=== PATIENT | male | born 1945 ===

== ENCOUNTER 2016-09-25 06:57 | Day surgery (SDC) | payer OTHER ==
[2016-09-17 21:19] VITALS: BMI 35.2
[2016-09-25] MEDS ORDERED: Midazolam 2 MG/2 ML VIAL ONE (09:46)
[2016-09-25] MEDS ORDERED: Iodixanol 320 MG/ML 200 ML BOTTLE IV ONE (09:47)
--- NOTE | 2016-09-25 10:27 | CP.SDSHP ---
Same Day Surgery H & P - History Proposed Procedure: please see [facility] consult. no change - Allergies Allergies: Allergies Penicillins Allergy (Intermediate, Verified 08/25/16 17:41) RASH Short Stay Discharge - Short Stay Discharge Admitting Diagnosis/Reason for Visit: CHEST PAIN Disposition: HOME/ ROUTINE
[2016-09-25] MEDS ORDERED: Sodium Chloride 0.9% 1,000 ML IV SCH (10:30)
--- NOTE | 2016-09-25 11:01 | OP ---
PROCEDURE DATE: 09/25/2016 PERIPHERAL ANGIOGRAM PROCEDURE PERFORMED: Retrograde access left common femoral artery, selective catheter placement in the right common femoral artery via contralateral approach , abdominal aortography with bilateral iliofemoral angiography, selective angiography right lower extremity using digital subtraction. INDICATIONS: Nonhealing ulcer. COMPLICATIONS: None. HISTORY: The patient is a 70-year-old male with past medical history of hypertension, hypercholesterolemia, and diabetes mellitus who presents with a diabetic foot ulcer. Due to poor wound healing, arterial duplex revealed moderate peripheral vascular disease. The patient is referred for angiography. The patient has a known transplanted right kidney. The risks of contrast- induced nephropathy were extensively discussed with the patient and his family. They understand, but given the poor wound healing, wish to proceed. DESCRIPTION OF PROCEDURE: After obtaining informed consent, the patient was prepped and draped in the usual sterile fashion. Left groin was accessed with a 5-Frisian sheath. Modified hook catheter was advanced to infrarenal abdominal aorta. Abdominal aortography was performed with visualization of bilateral iliac arteries. The catheter was then advanced over guidewire and selectively placed in the right common femoral artery. Selective angiography was performed. FINDINGS: The infrarenal abdominal aorta is free of aneurysm or dissection. Bilateral common iliac arteries arise normally. There is mild atherosclerotic plaque of the proximal right common iliac artery. The external iliac arteries arise normally. The anastomosis of the transplanted kidney to the right external iliac artery is free of disease. The internal iliac arteries have no significant disease. The external iliac arteries and common femoral arteries are free of significant disease. The proximal left superficial femoral artery is free of atherosclerosis. The right superficial femoral artery and popliteal artery are patent. There is mild atherosclerosis of the mid right popliteal artery. There is 2-vessel runoff to the right foot, which is supplied by the right anterior tibial artery and the right peroneal branch. There is an occlusion of the proximal right posterior tibial artery. There is no significant reconstitution of the posterior tibial artery. CONCLUSION: No significant inflow atherosclerosis with 2-vessel runoff to the right foot. PLAN: The patient will need continued antiplatelet therapy. There is no reconstitution site of the posterior tibial artery, and therefore, an endovascular approach or lower extremity bypass is not possible. Josi Griffith MD cc: [id number] TT: 09/25/2016 11:00:40 jn MTDD
== END 2016-09-25 12:33 | disposition home or self-care (01) ==
LOC: C.CATHLAB 06:57
PROVIDERS: ATTEND Internal Medicine Cardiovascular Disease
DX: E11.621 Type 2 diabetes mellitus with foot ulcer (principal); L97.519 Non-pressure chronic ulcer of other part of right foot with unspecified severity; I70.235 Atherosclerosis of native arteries of right leg with ulceration of other part of foot; I10 Essential (primary) hypertension; E78.00 Pure hypercholesterolemia, unspecified
CPT/HCPCS: 36140; 75716; 82948; J1644; J2250; J3010; J7040; Q9966

== ENCOUNTER 2017-04-06 06:17 | Day surgery (SDC) | payer MEDICARE, BC ==
[2017-03-31 11:50] VITALS: BMI 32.9
[2017-04-06 07:35] LABS: POTASSIUM 3.9 mmol/L (3.6-5.2)
[2017-04-06 07:44] LABS: INR 1.1
[2017-04-06] MEDS ORDERED: HYDROmorphone 0.5 mg/0.5 ml ISec IVP PRN (09:05)
[2017-04-06] MEDS ORDERED: Ciprofloxacin 400mg/200ml D5W 400 MG/200 ML BAG IVPB ONE (09:08)
[2017-04-06] MEDS ORDERED: Iohexol 240 (50 ml) ONE (09:09)
[2017-04-06] MEDS ORDERED: Sodium Chloride 0.9% 500 ML IV ONE (09:10)
[2017-04-06] MEDS ORDERED: Propofol 10 mg/ml Inj (20 ML) ONE (09:20)
[2017-04-06] MEDS ORDERED: Sodium Chloride 0.9% 1,000 ML IV ONE (09:40)
--- NOTE | 2017-04-06 09:46 | PCM.SURG1 ---
Surgeon's Initial Post Op Note - Surgeon's Notes Surgeon: jesús sheth Computer Forensic Examiner: none Type of Anesthesia: General Mask Pre-Operative Diagnosis: Hx of bladder tumor Operative Findings: bph. no bladder tumor. trabeculated bladder w cellules. filling defect L renal pelvis Post-Operative Diagnosis: same, see findings Operation Performed: cysto. bilat rtg pyelogram Specimen/Specimens Removed: urine Estimated Blood Loss: EBL {In ML}: 0 Blood Products Given: N/A Drains Used: No Drains Date of Surgery/Procedure: 04/06/17 Time of Surgery/Procedure: 09:35
--- NOTE | 2017-04-06 10:22 | RAD ---
PROCEDURE: Intraoperative Fluoroscopy. HISTORY: HX OF BLADDER TUMOR FINDINGS: Fluoroscopic assistance was provided. 10.3 seconds fluoroscopy time utilized during this procedure. Radiation dose gino 0.93891 mGy -cm
[2017-04-06 11:10] VITALS: RESP 16; O2SAT 97
[2017-04-06 11:29] VITALS: BP 120/70; PULSE 77; TEMP 97.3
--- NOTE | 2017-04-06 15:16 | RAD ---
HISTORY: HX OF BLADDER TUMOR COMPARISON: Comparison made with prior study 07/21/2016 FINDINGS: BOWEL: Moderate amount stool seen throughout the colon consistent with fecal retention/ constipation. No evidence of acute mechanical bowel obstruction. BONES: Osseous structures appear intact. Mild multilevel degenerative spondylosis of the lumbar spine. OTHER FINDINGS: Vascular calcifications are present IMPRESSION: Findings consistent with constipation.
--- NOTE | 2017-04-06 19:43 | OP ---
PROCEDURE DATE: 04/06/2017 PREOPERATIVE DIAGNOSIS: History of bladder tumor. POSTOPERATIVE DIAGNOSES: History of bladder tumor. No recurrent bladder tumor. Benign prostatic hypertrophy. Filling defect of left renal pelvis. PROCEDURE: Cystoscopy. Bilateral retrograde pyelogram. Procedure was performed under video endoscopic control as well as under fluoroscopic control. DESCRIPTION OF PROCEDURE: The patient received perioperative antibiotics. The patient was placed in lithotomy position. Genitalia prepped and draped sterilely. Anesthesia was provided by an anesthesiologist. A 22-Portuguese cystoscope sheath was introduced under direct vision. Urethra, prostate and bladder were inspected 30 degree and 70 degree lenses. FINDINGS: There was no stricture in the anterior urethra. There were no mucosal lesions within the urethra. The prostatic urethra was occlusive. The prostatic urethra was proximally 3 cm in length. There were no mucosal lesions within the prostatic urethra. There was no bladder neck contractions. The bladder was noted to markedly trabeculated. There were multiple small cellules. There was no bladder tumor. There was no bladder stone. The ureteral orifices were normal position and shape. There was no bladder diverticulum. Occlusive tip retrograde ureteropyelogram was performed. Iodinated contrast was instilled via cone tip catheter into each ureteral orifice. The retrograde pyelogram demonstrated normal calibers of ureters bilaterally. There was no filling defect within the ureter. The right renal collecting system was well filled and was normal. The left renal collecting system demonstrated a filling defect, oval-shaped, approximately 1 cm in size, located in the superior aspect of the renal pelvis. There was no caliectasis noted. Post drainage film was obtained as well and demonstrated good drainage from both kidneys. The bladder was reinspected with 70 degree lens and confirmed the above findings. The bladder was then drained. Cystoscope sheath removed. Rectal examination was performed. There was no abnormal pelvic mass fixation, induration. Prostate was supple and smooth approximately 25 g in size, without fixation, induration or nodularity. The patient tolerated the procedure without complication. Atiya Saldaña MD
== END 2017-04-06 11:35 | disposition home or self-care (01) ==
LOC: C.SDS 06:17
PROVIDERS: ATTEND Urology
DX: C67.9 Malignant neoplasm of bladder, unspecified (principal)
CPT/HCPCS: 36415; 52351; 74000; 80048; 82948; 85610; 85730; 87086; 88104; C1758; J7040

== ENCOUNTER 2017-08-31 06:14 | Day surgery (SDC) | payer MEDICARE, BC ==
[2017-08-19 08:11] VITALS: BMI 35.7
[2017-08-31] MEDS ORDERED: Lidocaine 2% Jelly (Uro-Jet) ONE (07:21)
[2017-08-31] MEDS ORDERED: Iohexol 240 (50 ml) ONE (07:21)
[2017-08-31 07:31] LABS: INR 1.2; PROTHROMBIN TIME 13.1 SECONDS (9.7-12.2)
[2017-08-31] MEDS ORDERED: Propofol 10 mg/ml Inj (20 ML) ONE (07:43)
[2017-08-31] MEDS ORDERED: Midazolam 2 MG/2 ML VIAL ONE (07:43)
[2017-08-31] MEDS: Ciprofloxacin 400mg/200ml D5W 400 MG/200 ML BAG IVPB ONE ×2 (07:50→08:06)
--- NOTE | 2017-08-31 08:14 | PCM.SURG1 ---
Surgeon's Initial Post Op Note - Surgeon's Notes Surgeon: Barbara Saldaña Mobile Home Installer: None Type of Anesthesia: General LMA Pre-Operative Diagnosis: Hx of bladder tumor Operative Findings: same. Abnormal bladder mucosa. filling defect of L kidney. bph Post-Operative Diagnosis: same Operation Performed: Cysto, bilat rtg pyelogram,. bladder bx and fulg, EUA Specimen/Specimens Removed: urine. bladder bx Estimated Blood Loss: EBL {In ML}: 0 Blood Products Given: N/A Drains Used: No Drains Post-Op Condition: Good Date of Surgery/Procedure: 08/31/17 Time of Surgery/Procedure: 08:14
[2017-08-31 09:59] VITALS: O2SAT 95
[2017-08-31 10:35] VITALS: BP 119/57; PULSE 81; RESP 19; TEMP 97.6
--- NOTE | 2017-08-31 15:27 | RAD ---
PROCEDURE: Intraoperative Fluoroscopy. HISTORY: HX. OF BLADDER TUMOR FINDINGS: Fluoroscopic assistance was provided for bilateral retrograde.. Please refer to the operative report from Dr. SHERMAN, [place]. Total fluoroscopic time (continuous mode) utilized during the procedure: seconds. 10.9 seconds.
--- NOTE | 2017-08-31 15:44 | RAD ---
HISTORY: HX. OF BLADDER TUMOR COMPARISON: 04/06/2017 FINDINGS: BOWEL: Normal. No obstruction. No free air. BONES: Normal. OTHER FINDINGS: None. IMPRESSION: No significant or acute findings to account for/ related to the clinical presentation.
--- NOTE | 2017-09-02 15:55 | OP ---
PROCEDURE DATE: 08/31/2017 PROCEDURES: 1. Cystoscopy. 2. Bilateral retrograde pyelogram, under fluoroscopic control. 3. Bladder biopsy and fulguration. 4. Exam under anesthesia. PREOPERATIVE DIAGNOSES: 1. History of bladder tumor. 2. Filling defect of left renal collecting system. 3. Urolithiasis. POSTOPERATIVE DIAGNOSES: 1. History of bladder tumor. 2. Filling defect of left renal collecting system. 3. Urolithiasis. 4. Abnormal bladder mucosa. OPERATING SURGEON: Atiya Saldaña MD DESCRIPTION OF PROCEDURE: The patient was placed in lithotomy position. Genitalia prepped and draped sterilely. Perioperative antibiotics were administered. Anesthesia was applied by the anesthesiologist via laryngeal mask airway. A 22-Tristanian cystoscope sheath was introduced under direct vision. Urethra, prostate, and bladder were inspected with 30-degree and 70-degree lenses. There was no stricture in the anterior urethra. The prostatic urethra was occlusive. Prostatic urethra was 3 cm in length. There were no mucosal lesions within the prostatic urethra. There was no bladder neck contraction. The bladder was noted to be mildly trabeculated. There were multiple cellules. The ureteral orifices were normal in position and shape. There was no bladder tumor. There was no bladder stone. There was abnormal bladder mucosa. On the trigone, bladder biopsy and fulguration were performed using cold cup biopsy forceps. Fulguration was performed with Ball electrode and electrocautery. The ureteral orifices were normal in position and shape. Occlusive tip retrograde ureteral pyelogram was performed. Iodinated contrast dye was instilled via cone tip catheter. The ureters and kidneys were viewed sequentially with fluoroscopy. The retrograde pyelogram demonstrated a filling defect within the left renal collecting system. The was approximately 5 mm in size and oval-shaped and smooth edged. There was no hydronephrosis. There was no evidence of ureteral obstruction or filling defect. The right retrograde pyelogram demonstrated no evidence of filling defect or obstruction within the ureteral collecting system. Post drainage film demonstrated good drainage from both systems. The bladder was reinspected with 70-degree lens and confirmed the above findings. Hemostasis was complete. The bladder was then drained. Cystoscope and sheath were removed. Rectal examination was performed. Prostate was supple and smooth, approximately 30 gm in size, without fixation, induration, or nodularity. The patient was returned to the supine position. The patient tolerated the procedure without complication. Atiya Saldaña MD
== END 2017-08-31 10:35 | disposition home or self-care (01) ==
LOC: C.SDS 06:14
PROVIDERS: ATTEND Urology
DX: N20.9 Urinary calculus, unspecified (principal); Z85.51 Personal history of malignant neoplasm of bladder
CPT/HCPCS: 36415; 52204; 52214; 74018; 82948; 85610; 85730; 87086; 88104; 88305; C1758; J0744

== ENCOUNTER 2017-10-12 06:16 | Day surgery (SDC) | payer MEDICARE, BC ==
[2017-10-05 09:15] VITALS: BMI 35.1
[2017-10-12] MEDS ORDERED: cefTRIAXone IV 1 gm in Dextros 0 ML IVPB ONE (07:22)
[2017-10-12] MEDS ORDERED: Iohexol 240 (50 ml) ONE (07:23)
[2017-10-12] MEDS ORDERED: Lidocaine 2% Jelly (Uro-Jet) ONE (07:23)
[2017-10-12] MEDS ORDERED: Dextrose 5%/0.45% NS 500 ML IV ONE (07:27)
[2017-10-12] MEDS ORDERED: Midazolam 2 MG/2 ML VIAL ONE (07:56)
[2017-10-12] MEDS ORDERED: Propofol 10 mg/ml Inj (20 ML) ONE (07:56)
[2017-10-12] MEDS ORDERED: Ciprofloxacin 400mg/200ml D5W 400 MG/200 ML BAG IVPB ONE (08:07)
[2017-10-12] MEDS ORDERED: Lactated Ringer's 1,000 ML IV ONE (09:23)
--- NOTE | 2017-10-12 09:23 | PCM.SURG1 ---
Surgeon's Initial Post Op Note - Surgeon's Notes Surgeon: Barbara Saldaña Pattern Fitter: none Type of Anesthesia: General LMA Pre-Operative Diagnosis: L renal pelvic filling defect Operative Findings: same Post-Operative Diagnosis: same Operation Performed: cysto,. L rtg pyelogram. L ureterorenoscopy. stent insertion Specimen/Specimens Removed: urine Estimated Blood Loss: EBL {In ML}: 0 Blood Products Given: N/A Post-Op Condition: Good Date of Surgery/Procedure: 10/12/17 Time of Surgery/Procedure: 09:00
[2017-10-12] MEDS ORDERED: HYDROmorphone 0.5 mg/0.5 ml ISec IVP PRN (09:37)
--- NOTE | 2017-10-12 10:46 | RAD ---
HISTORY: LT. KIDNEY FILLING DEFECT COMPARISON: 08/31/2017. FINDINGS: There are no calcifications overlying the renal silhouette. BOWEL: Normal. No obstruction. No free air. BONES: Normal. OTHER FINDINGS: Atherosclerotic vascular calcifications are present. IMPRESSION: No radiographic evidence for nephrourolithiasis.
[2017-10-12 10:53] VITALS: O2SAT 95
--- NOTE | 2017-10-12 11:33 | RAD ---
PROCEDURE: Intraoperative Fluoroscopy. HISTORY: Left KIDNEY FILLING DEFECT FINDINGS: Fluoroscopic assistance was provided for left renal nephrogram with nephroureteral placement.. Please refer to the operative report from Dr. SHERMAN, [place].
[2017-10-12 12:29] VITALS: BP 117/52; PULSE 82; RESP 15; TEMP 97.5
--- NOTE | 2017-10-13 15:12 | OP ---
PROCEDURE DATE: 10/12/2017 PREOPERATIVE DIAGNOSIS: History of left renal pelvic filling defect. POSTOPERATIVE DIAGNOSIS: History of left renal pelvic filling defect. PROCEDURE: Cystoscopy, left retrograde pyelogram, left ureterorenoscopy, left ureteral stent insertion. SURGEON: Atiya Saldaña MD DESCRIPTION OF PROCEDURE: The patient received perioperative antibiotics. The patient was placed in lithotomy position. Anesthesia was administered by the anesthesiologist. Procedure was performed under video endoscopic control as well as under fluoroscopic control. The patient was in lithotomy position and genitalia prepped and draped sterilely. A 22-Beninese cystoscope sheath was introduced under direct vision. Urethra, prostate, and bladder were inspected with 30-degree lens. FINDINGS: There was no stricture in the anterior urethra. There was evidence of lateral prostatic hypertrophy. There were no mucosal lesions within the prostate. There were no mucosal lesions within the bladder. There was moderate bladder trabeculation. The ureteral orifices were normal in position and shape. A 0.035 inch guidewire was inserted into the left ureteral orifice. A second guidewire was inserted into the left ureteral orifice. The guidewires were inserted up to level of the kidney. Ureteral dilation was performed using a 10-Beninese double-lumen ureteral catheter passed over the guidewires. The catheter advanced in atraumatic fashion under fluoroscopic control. Thereafter, a 7-Beninese flexible ureterorenoscope was advanced over the working wire under fluoroscopic as well as video endoscopic control. The ureteroscope advanced in atraumatic fashion without difficulty up to level of the kidney. Iodinated contrast dye was instilled via the open-ended catheter before we passed through ureteroscope. The kidney was inspected. The calyces were inspected. There was somewhat decreased visibility due to the scope. The calyces were inspected. The renal pelvis was inspected. However, due to the decreased visibility, the lesion could not be identified endoscopically. On some of the fluoroscopic views, although not all the fluoroscopic views, a filling defect was identified at the level of the mid to upper pole renal pelvis. There were no lesions within the ureter identified. The ureteroscope was removed. A 6-Beninese Multi-Length stent was inserted over the guidewire. Proper stent position was confirmed with fluoroscopy and endoscopy. The stent was left in place. The bladder was drained. Cystoscope sheath was removed. Lidocaine jelly was instilled previously. Exam under anesthesia was performed. Prostate was supple and smooth. There was no abnormal pelvic mass fixation or induration. There was no bladder tumor identified. The patient tolerated the procedure without complications. Atiya Saldaña MD
== END 2017-10-12 11:22 | disposition home or self-care (01) ==
LOC: C.SDS 06:16
PROVIDERS: ATTEND Urology
DX: R94.4 Abnormal results of kidney function studies (principal); E11.22 Type 2 diabetes mellitus with diabetic chronic kidney disease; I12.9 Hypertensive chronic kidney disease with stage 1 through stage 4 chronic kidney disease, or unspecified chronic kidney disease; N18.9 Chronic kidney disease, unspecified; Z94.0 Kidney transplant status; I49.5 Sick sinus syndrome; Z95.0 Presence of cardiac pacemaker; Z85.51 Personal history of malignant neoplasm of bladder; Z79.899 Other long term (current) drug therapy; Z79.4 Long term (current) use of insulin; Z79.52 Long term (current) use of systemic steroids; Z88.0 Allergy status to penicillin
CPT/HCPCS: 52332; 52351; 74018; 82948; 87086; J0744; J7042; J7120

== ENCOUNTER 2017-10-19 06:32 | Day surgery (SDC) | payer MEDICARE, BC ==
[2017-10-05 09:15] VITALS: BMI 35.1
[2017-10-19 07:59] LABS: INR 1.1; PROTHROMBIN TIME 13.1 SECONDS (9.7-12.2)
[2017-10-19] MEDS ORDERED: Midazolam 2 MG/2 ML VIAL ONE (08:12)
[2017-10-19] MEDS ORDERED: Propofol 10 mg/ml Inj (20 ML) ONE (08:12)
[2017-10-19] MEDS ORDERED: Lidocaine 2% Jelly (Uro-Jet) ONE (08:31)
[2017-10-19] MEDS ORDERED: Iohexol 240 (50 ml) ONE (08:31)
[2017-10-19] MEDS ORDERED: Ciprofloxacin 400mg/200ml D5W 400 MG/200 ML BAG IVPB ONE (08:31)
[2017-10-19] MEDS ORDERED: Succinylcholine Chloride 20 mg/ml Syr (5 ml) IV ONE (08:33)
[2017-10-19] MEDS ORDERED: Phenylephrine 10 mg/ml Inj ONE (08:51)
[2017-10-19] MEDS ORDERED: Lactated Ringer's 1,000 ML IV ONE (10:00)
--- NOTE | 2017-10-19 10:03 | PCM.SURG1 ---
Surgeon's Initial Post Op Note - Surgeon's Notes Surgeon: Barbara Saldaña Batch Freezer Operator: none Type of Anesthesia: General Endo Pre-Operative Diagnosis: L renal pelvic filling defect Operative Findings: same. Erythema of mucosa, raised. No definite tumor identified Post-Operative Diagnosis: same Operation Performed: cystoscopy. L uretero-renoscopy. L rtg pyelogram. Renal collecting system biopsy and fulguration. insertion of L ureteral stent. EUA Specimen/Specimens Removed: urine. renal pelvic bx Estimated Blood Loss: EBL {In ML}: 0 Blood Products Given: N/A Post-Op Condition: Good Date of Surgery/Procedure: 10/19/17 Time of Surgery/Procedure: 09:50
[2017-10-19] MEDS ORDERED: HYDROmorphone 0.5 mg/0.5 ml ISec IVP PRN (10:04)
--- NOTE | 2017-10-19 11:35 | RAD ---
HISTORY: GROSS HEMATURIA COMPARISON: 10/12/2017 single-view abdomen. FINDINGS: BOWEL: Normal. No obstruction. No free air. BONES: Normal. OTHER FINDINGS: Position of the left double J stent catheter(s): Satisfactory a new finding compared to the prior study IMPRESSION: Satisfactory position of recently placed double-J stent catheter on the left.
--- NOTE | 2017-10-19 11:37 | RAD ---
PROCEDURE: Intraoperative Fluoroscopy. HISTORY: GROSS HEMATURIA FINDINGS: Fluoroscopic assistance was provided for double-J stent catheter placement. Please refer to the operative report from Dr. SHERMAN, [place]. Total fluoroscopic time (continuous mode) utilized during the procedure 93.5 (seconds). Total exam DLP: (mGy)/m2 1.76
[2017-10-19 12:05] VITALS: O2SAT 98
[2017-10-19 12:52] VITALS: BP 124/55; PULSE 88; RESP 16; TEMP 97.5
--- NOTE | 2017-10-20 15:56 | OP ---
PROCEDURE DATE: 10/19/2017 PREOPERATIVE DIAGNOSIS: History of left renal pelvic filling defect. POSTOPERATIVE DIAGNOSES: 1. History of left renal pelvic filling defect. 2. Abnormal mucosa within the left renal collecting system. PROCEDURES: 1. Cystoscopy. 2. Left ureterorenoscopy. 3. Left renal pelvic biopsy and fulguration. 4. Left ureteral stent insertion. 5. Left retrograde pyelogram. OPERATING SURGEON: Atiya Saldaña MD Procedure was performed under video endoscopic control as well as under fluoroscopic control. DESCRIPTION OF PROCEDURE: The patient received perioperative antibiotics. The patient was placed in lithotomy position. General anesthesia was administered. The genitalia were prepped and draped sterilely. [employer] Assistant film of the abdomen was obtained and demonstrated the left ureteral stent in proper position. The 22-Icelandic cystoscope sheath was introduced under direct vision. The urethra, prostate, and bladder were inspected. There were no tumors within the urethra, prostate, or bladder. There was moderate diffuse cystitis. The left ureteral stent was seen in proper position. The prostatic urethra was mildly occlusive. A 0.035-inch guidewire was inserted into the left ureteral orifice and passed up to the level of the kidney. The left ureteral stent was grasped with grasping forceps and delivered to the distal end of the cystoscope sheath. A second guidewire was inserted into the left ureteral stent and passed up to the level of the kidney. Ureteroscopy was performed with the 7-Icelandic flexible ureteroscope. Ureteroscope passed without difficulty over the working wire, the ureteroscope was passed under fluoroscopic control as well as under video endoscopic control. There were no mucosal lesions within the ureter. There was no ureteral stone. There was no ureteral stricture. Iodinated contrast dye was instilled via the ureteroscope. The retrograde pyelogram demonstrated mild fullness of the collecting system. The previously identified renal pelvic filling defect was not sharply defined. Ureterorenoscopy was performed. All the calyces were inspected, starting with the upper pole calyces. The middle pole and lower pole calyces were inspected as well. There were no papillary tumors identified. The area of the incompletely visualized filling defect of the renal pelvis at the junction of the middle and upper pole calyces was identified under fluoroscopic control as well as videoendoscopic control. There was some erythematous mucosa with mucosa and some mucosa. This area was biopsied with the 3-Icelandic ureteroscopic biopsy forceps. Two biopsies were obtained and delivered along with the ureteroscope. The ureteroscope was reintroduced. Fulguration was performed with the electrocautery and 3-Icelandic ball electrode. Hemostasis was complete. Renal pelvic collecting system was reinspected. There were no other abnormal findings. The ureteroscope was removed. The ureteroscope was back loaded. A 6-Icelandic multi-length stent was inserted over the remaining guidewire. Proper stent position was confirmed with fluoroscopy and endoscopy. The guidewire was removed. Stent was left in place. A distal suture was left to exit per urethra from the stent. The bladder was drained. Cystoscope and sheath removed. Rectal examination under anesthesia was performed. There was no abnormal pelvic mass fixation or induration. The patient tolerated the procedure without complication. Atiya Saldaña MD
== END 2017-10-19 12:48 | disposition home or self-care (01) ==
LOC: C.SDS 06:32
PROVIDERS: ATTEND Urology
DX: R93.41 Abnormal radiologic findings on diagnostic imaging of renal pelvis, ureter, or bladder (principal); R31.0 Gross hematuria; E11.9 Type 2 diabetes mellitus without complications; Z79.4 Long term (current) use of insulin; I25.10 Atherosclerotic heart disease of native coronary artery without angina pectoris
CPT/HCPCS: 36415; 52005; 52007; 74018; 82948; 85610; 85730; 87086; 88104; 88305; C1769; C1887; C2617; J0744; J7120

== ENCOUNTER 2018-03-29 08:52 | Day surgery (SDC) | payer MEDICARE, BC ==
[2018-02-19 07:00] VITALS: BMI 35.1
[~2018-03-29 08:52] MED LIST: Iohexol 240 (50 ml) ONE; Lidocaine 2% Jelly (Uro-Jet) ONE
[2018-03-29] MEDS ORDERED: Ciprofloxacin 400mg/200ml D5W 400 MG/200 ML BAG IVPB ONE (10:47)
[2018-03-29] MEDS ORDERED: Midazolam 2 MG/2 ML VIAL ONE (10:55)
[2018-03-29] MEDS ORDERED: Propofol 10 mg/ml Inj (20 ML) ONE (10:55)
--- NOTE | 2018-03-29 11:25 | PCM.SURG1 ---
Surgeon's Initial Post Op Note - Surgeon's Notes Surgeon: Barbara Saldaña Awning Erector: none Type of Anesthesia: IV Sedation Pre-Operative Diagnosis: baldder tumor Operative Findings: abnormal [place] L floor Post-Operative Diagnosis: same, bph Operation Performed: cysto, bilat rtg pyelogram. bladder bx and fulg Specimen/Specimens Removed: urine. bladder bx Estimated Blood Loss: EBL {In ML}: 0 Blood Products Given: N/A Drains Used: No Drains Post-Op Condition: Good Date of Surgery/Procedure: 03/29/18 Time of Surgery/Procedure: 11:25
[2018-03-29] MEDS ORDERED: HYDROmorphone 0.5 mg/0.5 ml ISec IVP PRN (11:47)
[2018-03-29] MEDS ORDERED: Sodium Chloride 0.9% 1,000 ML IV SCH (12:00)
[2018-03-29 13:00] VITALS: RESP 18; TEMP 97.6
[2018-03-29 13:29] VITALS: BP 114/55; PULSE 62; O2SAT 99
--- NOTE | 2018-03-29 15:16 | RAD ---
Date of service: 03/29/2018 PROCEDURE: Intraoperative Fluoroscopy. HISTORY: HX. OF BLADDER TUMOR FINDINGS: Fluoroscopic assistance was provided. Fluoroscopy time = 25.4 sec. Radiation dose = 0.37932 mGy-cm. Please refer to the operative report from Dr. SHERMAN, [place].
--- NOTE | 2018-03-29 18:02 | RAD ---
Date of service: 03/29/2018 HISTORY: HX. OF BLADDER TUMOR COMPARISON: 10/19/2017 FINDINGS: BOWEL: Normal. No obstruction. No free air. BONES: Normal. OTHER FINDINGS: Removal of support apparatus since the prior study: Left-sided double-J stent. IMPRESSION: No significant or acute findings to account for/ related to the clinical presentation.
--- NOTE | 2018-03-30 15:12 | OP ---
PROCEDURE DATE: 03/29/2018 PREOPERATIVE DIAGNOSIS: History of bladder tumor. POSTOPERATIVE DIAGNOSIS: Abnormal bladder mucosa, bladder nodule. PROCEDURES: Cystoscopy. Bilateral retrograde pyelogram. Bladder biopsy and fulguration. Exam under anesthesia. OPERATING SURGEON: Atiya Saldaña MD PROCEDURE FOLLOWS: The patient received perioperative antibiotics. The patient was placed in lithotomy position. Anesthesia was provided by the anesthesiologist. The genitalia prepped and draped sterilely. Corporate Officer film of the abdomen was obtained. A 22-Slovak cystoscope sheath was introduced under direct vision. Urethra, prostate, and bladder were inspected with 30 degree and 70 degree lenses. FINDINGS: There was no stricture in the anterior urethra. There was evidence of trilobar prostatic hypertrophy which was occlusive. Prostatic urethra was 3.5 cm in length. There was predominantly lateral lobe hypertrophy. There was moderate bladder trabeculation. There was no bladder stone. There was one area of abnormal mucosa involving the left floor of the bladder. The mucosa was pale and elevated with nodular appearance. It did not have the typical papillary bladder tumor appearance. There was no bladder diverticulum. Occlusive tip retrograde ureteropyelogram was performed. Iodinated contrast dye was instilled via cone-tip catheter into each ureteral orifice. The ureter and kidneys were viewed sequentially with fluoroscopy. There was noted to be no evidence of obstruction or filling defect within the ureters or collecting system. There was noted to be a possible filling defect within the left collecting system. However, oblique views demonstrate that this filling defect was in fact not a filling defect, although rather was allusion of the filling defect, due to the anatomy of the upper and middle pole collecting system. This was further defined as normal on the oblique views. The fluoroscopic view of the oblique views was performed during lifetime movement of the patient under fluoroscopic control. There was no evidence of obstruction. There was excellent drainage on post drainage views. The area of abnormal mucosa was biopsied using cold cup biopsy forceps. Fulguration was performed with Ball electrode and electrocautery. Specimen sent for pathologic examination. The bladder was reinspected with 70 degree lens and confirmed the above findings. The bladder was then drained. Cystoscope sheath removed. Exam under anesthesia/rectal examination was performed. There was no abnormal pelvic mass fixation or induration. There was no bladder mass. Prostate was supple and smooth, approximately 30 to 40 g in size, without fixation, induration, or nodularity. The bladder was inspected extensively looking for an extra ureteral orifice, consistent with the patient's history of renal transplant. There was no other orifice identified. The retrograde pyelogram views only the marshall kidneys. The right kidney was noted to be smaller in size compared to the left kidney. The patient tolerated the procedure without complication. Atiya Saldaña MD
== END 2018-03-29 13:35 | disposition home or self-care (01) ==
LOC: C.SDS 08:52
PROVIDERS: ATTEND Urology
DX: N30.80 Other cystitis without hematuria (principal); N40.0 Benign prostatic hyperplasia without lower urinary tract symptoms
CPT/HCPCS: 52204; 74018; 82948; 87086; 88104; 88305; J0744; Q9966

== ENCOUNTER 2018-09-04 09:51 | Inpatient (IN) | payer MEDICARE, BC ==
[2018-09-04 09:53] VITALS: BMI 33.3
--- NOTE | 2018-09-04 11:07 | C.PDOC ---
History Of Present Illness CC: Hematuria, fever. Patient from [place] present with hematureia and low grade fever today. No abdominal pain, no disuria, no vomiting. Has DM, HTN Time Seen by Provider: 09/04/18 10:40 Chief Complaint (Nursing): Male Genitourinary History Per: Patient History/Exam Limitations: no limitations Current Symptoms Are (Timing): Still Present Severity: Moderate Pain Scale Rating Of: 0 Associated Symptoms: Chills, Urinary Symptoms Alleviating Factors: None Recent travel outside of the [place]: No Additional History Per: Family Past Medical History Vital Signs: Last Vital Signs Temp 100.8 F H 09/04/18 10:17 Pulse 75 09/04/18 10:17 Resp 18 09/04/18 10:17 BP 108/67 09/04/18 10:17 Pulse Ox 99 09/04/18 10:17 JULIANN Report Viewed: Yes - Medical History PMH: Arthritis, Atrial Fibrillation, Benign Prostatic Hyperplasia, Cardia Arrhythmia (ATRIAL FIB), CHF, Diabetes (insulin), Fractures (Left hand finger 60yrs ago), HTN, Hypercholesterolemia, Hypothyroidism, Pneumonia, Chronic Kidney Disease (S/P renal transplant), Sleep Apnea Denies: CAD Surgical History: Endoscopy, Pacemaker - [facility] CONTRAST ARTERIOGRAM-LEG (02/02/13) EXCISION OF R FOOT SUBCU/FASCIA, OPEN APPROACH (08/19/16) EXCISION OF RIGHT FOOT SKIN, EXTERNAL APPROACH (08/19/16) EXCISION OF RIGHT METATARSAL, OPEN APPROACH (08/19/16) EXERCISE TRMT MUSCULOSK LOW BACK/LE W ASSIST EQUIP (08/25/16) FLUOROSCOPY OF SUPERIOR VENA CAVA, GUIDANCE (08/11/18) GAIT TRAINING/AMBULAT TREATMENT USING ASSIST EQUIPMENT (08/25/16) HEMODIALYSIS (02/02/13) HOME MANAGEMENT TREATMENT USING ASSIST EQUIPMENT (08/25/16) INSERT PACE, SINGL RICA IN CHEST SUBCU/FASCIA, OPEN (11/04/15) INSERTION OF ENDOTRACHEAL AIRWAY INTO TRACHEA, VIA OPENING (11/04/15) INSERTION OF INFUSION DEV INTO SUP VENA CAVA, PERC APPROACH (08/11/18) INSERTION OF PACEMAKER LEAD INTO R VENTRICLE, PERC APPROACH (11/04/15) PERFORMANCE OF CARDIAC PACING, CONTINUOUS (11/04/15) PLAIN RADIOGRAPHY OF AORTA, BI LE ART USING OTH CONTRAST (09/18/16) RESECTION OF RIGHT METATARSAL, OPEN APPROACH (08/19/16) RESPIRATORY VENTILATION, GREATER THAN 96 CONSECUTIVE HOURS (11/04/15) ULTRASONOGRAPHY OF SUPERIOR VENA CAVA, GUIDANCE (08/11/18) Family History: States: Unknown Family Hx - Social History Hx Alcohol Use: Yes Hx Substance Use: No - Immunization History Hx Tetanus Toxoid Vaccination: No Hx Influenza Vaccination: No Hx Pneumococcal Vaccination: No Review Of Systems Constitutional: Positive for: Chills Eyes: Negative for: Pain ENT: Negative for: Ear Pain Cardiovascular: Negative for: Chest Pain Respiratory: Negative for: Cough Gastrointestinal: Negative for: Nausea Genitourinary: Positive for: Hematuria. Negative for: Incontinence Musculoskeletal: Negative for: Neck Pain Neurological: Negative for: Weakness, Numbness Psych: Negative for: Anxiety, Depression, Suicidal ideation Physical Exam - Physical Exam Appears: Well, Non-toxic Skin: Normal Color Head: Atraumatic, Normacephalic Eye(s): bilateral: Normal Inspection Ear(s): Left: Normal, Right: Normal, Bilateral: Normal Nose: Normal Oral Mucosa: Moist Tongue: Normal Appearing Lips: Normal Appearing Throat: Normal Neck: Normal, Normal ROM Lymphatic: Deferred Chest: Symmetrical Cardiovascular: Rhythm Regular, No Edema Respiratory: Normal Breath Sounds Gastrointestinal/Abdominal: Normal Exam, Soft, No Tenderness Back: Normal Inspection Extremity: Normal ROM, No Pedal Edema Pulses: Left Carotid: Normal, Right Carotid: Normal Neurological/Psych: Oriented x3, Normal Speech, Normal Cognition Extremity: Right: No Drift, Left: No Drift, Upper: No Drift, Lower: No Drift ED Course And Treatment - Laboratory Results Result Diagrams: 09/04/18 11:03 09/04/18 11:03 O2 Sat by Pulse Oximetry: 99 (RA) Pulse Ox Interpretation: Normal Medical Decision Making Medical Decision Making: Plans: -- chem labs -- blood work -- CXR -- IV fluids Discuss case with Dr. Zenia Saldaña, Urology called and requested additional testing: CTA and told to consult with Dr. Erazo and Pt PMD Dr. Arciniega, however, Dr. Arciniega does not have privileges at [facility]. Dr. Arciniega was unable to be contacted. Disposition Discussed With : Cesar Knutson Doctor Will See Patient In The: Hospital Counseled Patient/Family Regarding: Studies Performed, Diagnosis - Disposition Disposition: HOSPITALIZED Disposition Time: 12:30 Condition: STABLE Forms: [facility] (Chinese) - POA Present On Arrival: None - Clinical Impression Clinical Impression: UTI (urinary tract infection), bacterial, Hematuria
[2018-09-04 11:26] LABS: BASO # 0.1 K/uL (0.0-0.2); BASO % 0.4 % (0.0-2.0); EOS % 0.2 % (0.0-4.0); HEMOGLOBIN 10.9 g/dL (12.0-18.0); LYMPH # 0.7 K/uL (1.0-4.3); LYMPH % 5.6 % (20.0-40.0); MEAN CELL VOLUME 87.5 fL (80.0-94.0); MEAN CORPUSCULAR HEMOGLOBIN 27.5 pg (27.0-31.0); MEAN CORPUSCULAR HGB CONC 31.4 g/dL (33.0-37.0); MEAN PLATELET VOLUME 9.6 fL (7.2-11.7); MONO # 1.8 K/uL (0.0-0.8); MONO % 15.4 % (0.0-10.0); NEUT # 9.3 K/uL (1.8-7.0); NEUT % 78.4 % (50.0-75.0); PLATELET COUNT 166 K/uL (130-400); RBC 3.96 Mil/uL (4.40-5.90); RED CELL DISTRIBUTION WIDTH 17.9 % (11.5-14.5); WHITE BLOOD COUNT 11.9 K/uL (4.8-10.8)
[2018-09-04 11:35] LABS: URINE BACTERIA MOD (<OCC); URINE BILIRUBIN NEGATIVE (NEGATIVE); URINE BLOOD 3+ (NEGATIVE); URINE CLARITY Hazy (Clear); URINE COLOR Amber (YELLOW); URINE GLUCOSE (UA) NORMAL (Normal); URINE LEUKOCYTE ESTERASE 2+ Leu/uL (Negative); URINE PROTEIN 2+ mg/dL (NEGATIVE); URINE UROBILINOGEN NORMAL mg/dL (0.2-1.0)
[2018-09-04 11:38] LABS: ALB/GLOB RATIO 1.6 (1.0-2.1); ALBUMIN 3.9 g/dL (3.5-5.0); CALCIUM 9.3 mg/dl (8.6-10.4)
[2018-09-04] MEDS ORDERED: Moxifloxacin IV 400mg/250ml NS 400 MG/250 ML BAG IVPB ONE ×2 (12:14→12:39)
[2018-09-04] MEDS: Sodium Chloride 0.9% 1,000 ML IV SCH ×3 (12:39→21:00)
[2018-09-04] MEDS ORDERED: Sodium Chloride 0.9% 1,000 ML ONE (12:39)
[2018-09-04 12:41] LABS: BANDS 3 % (0-2); LYMPHOCYTE 2 % (20-40); MONOCYTE 14 % (0-10); NEUTROPHIL 81 % (50-75); PLATELET ESTIMATE NORMAL (NORMAL); TOTAL CELLS COUNTED 100
[2018-09-04 12:42] LABS: ANISOCYTOSIS MODERATE; HYPOCHROMIC SLIGHT; OVALOCYTES SLIGHT; POIKILOCYTOSIS SLIGHT; POLYCHROMIC SLIGHT
[2018-09-04 12:48] LABS: GIANT PLATELETS PRESENT; LARGE PLATELETS PRESENT
[2018-09-04 12:58] LABS: TOXIC GRANULATION PRESENT
--- NOTE | 2018-09-04 13:15 | RAD ---
Chest x-ray single frontal view HISTORY: Shortness of breath. Comparison: 03/16/2018 Findings: Right-sided pacemaker. Diffuse increased interstitial lung markings. Bilateral hilar prominence. Patchy consolidative changes at the left lung base and right infrahilar region. Cardiomegaly. Degenerative changes in the spine and shoulders. Impression: Right-sided pacemaker. Diffuse increased interstitial lung markings. Bilateral hilar prominence. Patchy consolidative changes at the left lung base and right infrahilar region. Cardiomegaly.
--- NOTE | 2018-09-04 14:47 | CT ---
CT abdomen and pelvis HISTORY: Flank pain. COMPARISON: CT dated 06/23/2017 Technique: Multiple contiguous axial images were performed through the abdomen and pelvis without the use of intravenous contrast. Subsequently, sagittal and coronal reformatted images were obtained. This CT exam was performed using one or more of the following dose reduction techniques: Automated exposure control, adjustment of the mA and/or kV according to patient size, and/or use of iterative reconstruction technique. Findings: Scattered areas of atelectasis seen throughout the lung bases. Scattered areas of nodular consolidation and or nodules seen throughout the visualized portions of the left lung including within the lingula there is focal nodular consolidation measuring up to 8 millimeters as well as smaller scattered nodular densities seen throughout the left lower lobe. A 1 centimeter focal area of nodular consolidation is seen at the anterior aspect of the left lower lobe. Prominent calcified granuloma at the left lung base. Coronary stents. Punctate hypodensity at the dome of the liver. Prominent liver with fatty infiltration. Gallbladder is preserved. Prominent spleen. Splenule. Splenic calcifications. Adrenal glands are preserved. Pancreas is preserved. Small hiatal hernia. Few distended loops of small bowel seen within the left upper abdomen. Atrophic right kidney with perinephric fat stranding. Renal vascular calcifications. Atrophic left kidney with renal vascular calcifications. Mild left perinephric fat stranding. Right renal transplant kidney with moderate perinephric fat stranding. Mild fullness of the right renal collecting system and ureter. No discrete calculus identified. Distended urinary bladder. Heterogeneous prostate and seminal vesicles. Moderate fecal retention in the colon. Appendix is within normal limits. Atherosclerotic calcification and plaque within the aorta. Few shotty para-aortic and inguinal lymph nodes. Few shotty mesenteric lymph nodes. Degenerative changes in the spine. Posterior disc osteophyte complex at the L3-4 level. Bone island in the left iliac bone. Impression: Moderate perinephric fat stranding at the level of the right renal transplant kidney with associated mild fullness of the right renal collecting system and ureter. This is nonspecific. Acute infectious and or inflammatory changes of the right renal transplant kidney cannot be excluded. Clinical correlation. Additional findings as above.
[2018-09-04] MEDS ORDERED: Glucagon Recombinant 1 mg Inj IM PRN (16:54)
[2018-09-04] MEDS ORDERED: Dextrose 50% SYRINGE Inj (50 ml) IV PRN (16:54)
[2018-09-04] MEDS: Potassium Chloride 20 mEq ER Tab PO SCH (17:00)
[2018-09-04] MEDS: Aztreonam 1 GM in Sodium Chloride 0.9% 100 ML IVPB SCH (21:55)
[2018-09-04] MEDS: (Lantus) Insulin Glargine, Recombinant SC SCH (22:01)
[2018-09-04] MEDS: (Novolog) Insulin Aspart, Recombinant 100 u/ml 10 ml vial SC SCH (22:03)
[2018-09-04] MEDS: Mycophenolic Acid DR 360 mg Tab PO SCH (22:11)
[2018-09-05] MEDS: Levothyroxine 75 MCG TAB PO SCH (05:37)
[2018-09-05] MEDS: Aztreonam 1 GM in Sodium Chloride 0.9% 100 ML IVPB SCH ×3 (05:37→21:40)
[2018-09-05] MEDS: (Novolog) Insulin Aspart, Recombinant 100 u/ml 10 ml vial SC SCH ×4 (08:00→21:42)
[2018-09-05] MEDS: Sodium Chloride 0.9% 1,000 ML IV SCH ×4 (08:01→19:30)
[2018-09-05 08:56] LABS: BASO # 0.1 K/uL (0.0-0.2); BASO % 0.5 % (0.0-2.0); EOS % 0.3 % (0.0-4.0); HEMOGLOBIN 9.8 g/dL (12.0-18.0); LYMPH # 0.9 K/uL (1.0-4.3); LYMPH % 7.2 % (20.0-40.0); MEAN CELL VOLUME 86.9 fL (80.0-94.0); MEAN CORPUSCULAR HEMOGLOBIN 27.3 pg (27.0-31.0); MEAN CORPUSCULAR HGB CONC 31.4 g/dL (33.0-37.0); MEAN PLATELET VOLUME 10.1 fL (7.2-11.7); MONO # 2.1 K/uL (0.0-0.8); MONO % 16.2 % (0.0-10.0); NEUT # 9.6 K/uL (1.8-7.0); NEUT % 75.8 % (50.0-75.0); PLATELET COUNT 144 K/uL (130-400); RBC 3.59 Mil/uL (4.40-5.90); RED CELL DISTRIBUTION WIDTH 18.3 % (11.5-14.5); WHITE BLOOD COUNT 12.7 K/uL (4.8-10.8)
[2018-09-05 09:06] LABS: CALCIUM 8.5 mg/dl (8.6-10.4)
[2018-09-05] MEDS ORDERED: Ergocalciferol 50,000 Intl Units Cap PO SCH (10:00)
[2018-09-05] MEDS ORDERED: Levothyroxine 75 MCG TAB PO SCH (10:00)
[2018-09-05] MEDS: Potassium Chloride 20 mEq ER Tab PO SCH (10:14)
[2018-09-05] MEDS: Mycophenolic Acid DR 360 mg Tab PO SCH (10:14)
[2018-09-05] MEDS: Pantoprazole 40 mg EC Tab PO SCH (10:14)
[2018-09-05] MEDS: Multiple Vitamins Tab PO SCH (10:14)
[2018-09-05 10:52] LABS: BANDS 7 % (0-2); LYMPHOCYTE 4 % (20-40); MONOCYTE 13 % (0-10); NEUTROPHIL 76 % (50-75); PLATELET ESTIMATE NORMAL (NORMAL); TOTAL CELLS COUNTED 100
[2018-09-05 10:53] LABS: ANISOCYTOSIS MODERATE; LARGE PLATELETS PRESENT
[2018-09-05 10:56] LABS: GIANT PLATELETS PRESENT; HYPOCHROMIC SLIGHT; POLYCHROMIC SLIGHT; TOXIC GRANULATION PRESENT
[2018-09-05 10:57] LABS: OVALOCYTES SLIGHT; POIKILOCYTOSIS SLIGHT
--- NOTE | 2018-09-05 16:27 | CP.PCM.CON ---
History of Present Illness - History of Present Illness History of Present Illness: 72 yo male with hx of renal transplant and gram neg sepsis with PCN allergy 72 year old female with a history of bladder cancer, DM, HTN, artial fibrillation, right transmetarsal amputation, left AV fistula and right renal transplant presents to the ED for evaluation of fever, Patient is a resident at [facility] and has an indwelling llanes catheter in place. He was recently treated at [facility] for urosepsis /pyelonephritis right kidney His blood cultures are again positive - Medical History PMH: Arthritis, Atrial Fibrillation, Cardia Arrhythmia (ATRIAL FIB), CHF, Diabetes (insulin), Fractures (Left hand finger 60yrs ago), HTN, Hypercho lesterolemia, Hypothyroidism, Pneumonia, Chronic Kidney Disease (S/P renal transplant), Sleep Apnea Denies: CAD Review of Systems - Review of Systems All systems: reviewed and no additional remarkable complaints except - Constitutional Constitutional: Chills, Fever, Malaise - EENT Eyes: absent: As Per HPI, Blind Spots, Blurred Vision, Change in Vision, Decreased Night Vision, Diplopia, Discharge, Dry Eye, Exophthalmos, Floaters, Irritation, Itchy Eyes, Loss of Peripheral Vision, Pain, Photophobia, Requires Corrective Lenses, Sees Flashes, Spots in Vision, Tunnel Vision, Other Visual Disturbances, Loss of Vision, Other Ears: absent: As Per HPI, Decreased Hearing, Ear Discharge, Ear Pain, Tinnitus, Abnormal Hearing, Disequilibrium, Dizziness, Other Nose/Mouth/Throat: absent: As Per HPI, Epistaxis, Nasal Congestion, Nasal Discharge, Nasal Obstruction, Nasal Trauma, Nose Pain, Post Nasal Drip, Sinus Pain, Sinus Pressure, Bleeding Gums, Change in Voice, Dental Pain, Dry Mouth, Dysphagia, Halitosis, Hoarsness, Lip Swelling, Mouth Lesions, Mouth Pain, Odynophagia, Sore Throat, Throat Swelling, Tongue Swelling, Facial Pain, Neck Pain, Neck Mass, Other - Cardiovascular Cardiovascular: As Per HPI - Respiratory Respiratory: As Per HPI - Gastrointestinal Gastrointestinal: absent: As Per HPI, Abdominal Pain, Belching, Bloating, Change in Bowel Habits, Change in Stool Character, Coffee Ground Emesis, Constipation, Cramping, Diarrhea, Dyspepsia, Dysphagia, Early Satiety, Excessive Flatus, Fecal Incontinence, Heartburn, Hematemesis, Hematochezia, Loose Stools, Melena, Nausea, Odynophagia, Temesmus, Vomiting, Other - Genitourinary Genitourinary: absent: As Per HPI, Change in Urinary Stream, Difficulty Urinating, Dysuria, Flank Pain, Hematuria, Pyuria, Nocturia, Urinary Incontinence, Urinary Frequency, Urinary Hesitance, Urinary Urgency, Voiding Freq/Small Amts, Freq UTI, Hx Renal/Bladder Calculi, Hx /Renal Surgery, Bladder Distension, Other - Musculoskeletal Musculoskeletal: As Per HPI - Integumentary Integumentary: absent: As Per HPI, Acne, Alopecia, Bleeding Lesions, Change in Hair, Change in Nails, Change in Pigmentation, Changing Lesions, Dry Skin, Erythema, Furuncle, Hirsutism, Lesions, New Lesions, Non-Healing Lesions, Photosensitivity, Pruritus, Rash, Skin Pain, Skin Ulcer, Sores, Striae, Swelling, Unusual Bruising, Wounds, Jaundice, Other - Neurological Neurological: absent: As Per HPI, Abnormal Gait, Abnormal Hearing, Abnormal Movements, Abnormal Speech, Behavioral Changes, Burning Sensations, Confusion, Convulsions, Disequilibrium, Dizziness, Numbness, Focal Weakness, Frequent Falls, Headaches, Lack of Coordination, Loss of Vision, Memory Loss, Paresthesias, Radicular Pain, Restless Legs, Sensory Deficit, Syncope, Tingling, Tremor, Vertigo, Weakness, Other Visual Disturbances, Other - Psychiatric Psychiatric: absent: As Per HPI, Abnormal Sleep Pattern, Anhedonia, Anxiety, Auditory Hallucinations, Behavioral Changes, Change in Appetite, Change in Libido, Confusion, Depression, Difficulty Concentrating, Hallucinations, Homicidal Ideation, Hopelessness, Irritability, Memory Loss, Mood Swings, Panic Attacks, Paranoia, Suicidal Ideation, Visual Hallucinations, Tactile Hallucinations, Other - Endocrine Endocrine: As Per HPI - Hematologic/Lymphatic Hematologic: absent: As Per HPI, Easy Bleeding, Easy Bruising, Lymphadenopathy, Other Past Patient History - Infectious Disease Hx of Infectious Diseases: None - Past Medical History & Family History Past Medical History?: Yes - Past Social History Smoking Status: Former Smoker - CARDIAC Hx Atrial Fibrillation: Yes Hx Cardia Arrhythmia: Yes (ATRIAL FIB) Hx Congestive Heart Failure: Yes Hx Hypercholesterolemia: Yes Hx Hypertension: Yes Hx Pacemaker: Yes - PULMONARY Hx Pneumonia: Yes Hx Sleep Apnea: Yes - HEENT Hx HEENT Problems: Yes Hx Cataracts: Yes - RENAL Hx Chronic Kidney Disease: Yes (S/P renal transplant) - ENDOCRINE/METABOLIC Hx Hypothyroidism: Yes - INTEGUMENTARY Hx Dermatological Problems: No - MUSCULOSKELETAL/RHEUMATOLOGICAL Hx Arthritis: Yes Hx Fractures: Yes (Left hand finger 60yrs ago) - PSYCHIATRIC Hx Substance Use: No - ANESTHESIA Hx Anesthesia: Yes Hx Anesthesia Reactions: No Hx Malignant Hyperthermia: No Meds Allergies/Adverse Reactions: Allergies Allergy/AdvReac Type Severity Reaction Status Date / Time Penicillins Allergy Intermediate RASH Verified 08/11/18 18:15 - Medications Medications: Current Medications Acetaminophen (Tylenol 325mg Tab) 650 mg PO Q4 PRN PRN Reason: Pain, Mild (1-3) Last Admin: 09/05/18 12:37 Dose: 650 mg Aspirin (Ecotrin) 81 mg PO DAILY [facility] Last Admin: 09/05/18 10:14 Dose: 81 mg Dextrose (Dextrose 50% Inj) 0 ml IV STAT PRN; Protocol PRN Reason: Hypoglycemia Protocol Dextrose (Glutose 15) 0 gm PO ONCE PRN; Protocol PRN Reason: Hypoglycemia Protocol Ergocalciferol (Drisdol 50,000 Intl Units Cap) 1 cap PO Q7D [facility] Last Admin: 09/05/18 12:24 Dose: 1 cap Ferrous Sulfate (Feosol) 325 mg PO DAILY [facility] Last Admin: 09/05/18 10:14 Dose: 325 mg Gabapentin (Neurontin) 100 mg PO DAILY [facility] Last Admin: 09/05/18 10:14 Dose: 100 mg Glucagon (Glucagen Diagnostic Kit) 0 mg IM STAT PRN; Protocol PRN Reason: Hypoglycemia Protocol Hydrocortisone Sodium Succinate (Solu-Cortef) 100 mg IV Q8H [facility] Sodium Chloride (Sodium Chloride 0.9%) 1,000 mls @ 100 mls/hr IV .Q10H [facility] Last Admin: 09/05/18 08:01 Dose: Not Given Sodium Chloride (Sodium Chloride 0.9%) 1,000 mls @ 100 mls/hr IV .Q10H [facility] Last Admin: 09/04/18 14:36 Dose: 100 mls/hr Dextrose (Dextrose 5% In Water 1000 Ml) 1,000 mls @ 0 mls/hr IV .Q0M PRN; Protocol PRN Reason: Hypoglycemia Protocol Aztreonam 1 gm/ Sodium (Chloride) 100 mls @ 100 mls/hr IVPB Q8H [facility]; Protocol Last Admin: 09/05/18 12:31 Dose: 100 mls/hr Sodium Chloride (Sodium Chloride 0.9%) 1,000 mls @ 50 mls/hr IV .Q20H [facility] Last Admin: 09/05/18 13:00 Dose: 50 mls/hr Influenza Virus Vaccine (Flucelvax Quad 1741-6150 Syr) 60 mcg IM .ONCE ONE Stop: 09/08/18 10:01 Insulin Aspart (Novolog) 0 unit SC [facility]; Protocol Last Admin: 09/05/18 12:23 Dose: 2 units Insulin Glargine (Lantus) 30 unit SC [facility] Last Admin: 09/04/18 22:01 Dose: 30 units Levothyroxine Sodium (Synthroid) 75 mcg PO DAILY@0630 [facility] Last Admin: 09/05/18 05:37 Dose: 75 mcg Multivitamins (Hexavitamin) 1 tab PO DAILY [facility] Last Admin: 09/05/18 10:14 Dose: 1 tab Mycophenolate Sodium (Myfortic Dr) 720 mg PO Q12 [facility] Last Admin: 09/05/18 10:14 Dose: 720 mg Pantoprazole Sodium (Protonix Ec Tab) 40 mg PO DAILY [facility] Last Admin: 09/05/18 10:14 Dose: 40 mg Rosuvastatin Calcium (Crestor) 10 mg PO [facility] Last Admin: 09/04/18 21:57 Dose: 10 mg Tamsulosin HCl (Flomax) 0.4 mg PO BID [facility] Last Admin: 09/05/18 10:14 Dose: 0.4 mg Physical Exam - Constitutional Appears: Non-toxic, No Acute Distress - Head Exam Head Exam: ATRAUMATIC, NORMAL INSPECTION, NORMOCEPHALIC - Eye Exam Eye Exam: PERRL. absent: Scleral icterus Pupil Exam: NORMAL ACCOMODATION - ENT Exam ENT Exam: Mucous Membranes Dry, Normal External Ear Exam, Normal Oropharynx - Cardiovascular Exam Cardiovascular Exam: REGULAR RHYTHM, +S1, +S2 - GI/Abdominal Exam GI & Abdominal Exam: Diminished Bowel Sounds, Soft. absent: Tenderness - Rectal Exam Rectal Exam: Deferred - Exam Exam: NORMAL INSPECTION - Extremities Exam Extremities exam: Positive for: pedal pulses present. Negative for: calf tenderness, pedal edema, tenderness Additional comments: right TMA - Back Exam Back exam: absent: CVA tenderness (L), CVA tenderness (R), paraspinal tenderness - Neurological Exam Neurological exam: Alert, CN II-XII Intact, Oriented x3, Reflexes Normal - Psychiatric Exam Psychiatric exam: Depressed - Skin Skin Exam: Dry Results - Vital Signs Recent Vital Signs: Last Vital Signs Temp 99.9 F H 09/05/18 12:37 Pulse 100 H 09/05/18 12:27 Resp 18 09/05/18 12:27 BP 120/77 09/05/18 12:27 Pulse Ox 94 L 09/05/18 12:27 - Labs Result Diagrams: 09/05/18 08:25 09/05/18 08:25 Labs: Laboratory Results - last 24 hr 09/04/18 09/05/18 09/05/18 21:30 07:09 08:25 WBC 12.7 H RBC 3.59 L Hgb 9.8 L Hct 31.2 L MCV 86.9 MCH 27.3 MCHC 31.4 L RDW 18.3 H Plt Count 144 MPV 10.1 Neut % (Auto) 75.8 H Lymph % (Auto) 7.2 L [place] % (Auto) 16.2 H Eos % (Auto) 0.3 Baso % (Auto) 0.5 Neut # (Auto) 9.6 H Lymph # (Auto) 0.9 L [place] # (Auto) 2.1 H Eos # (Auto) 0.0 Baso # (Auto) 0.1 Neutrophils % (Manual) 76 H Band Neutrophils % 7 H Lymphocytes % (Manual) 4 L Monocytes % (Manual) 13 H Toxic Granulation Present Platelet Estimate Normal Large Platelets Present Giant Platelets Present Polychromasia Slight Hypochromasia (manual) Slight Poikilocytosis (manual Slight Anisocytosis (manual) Moderate Ovalocytes Slight Sodium Potassium Chloride Carbon Dioxide Anion Gap BUN Creatinine Est GFR ( Amer) Est GFR (Non-Af Amer) POC Glucose (mg/dL) 173 H 102 Random Glucose Lactic Acid Calcium Prostate Specific Ag 09/05/18 09/05/18 09/05/18 08:25 12:16 15:17 WBC RBC Hgb Hct MCV MCH MCHC RDW Plt Count MPV Neut % (Auto) Lymph % (Auto) [place] % (Auto) Eos % (Auto) Baso % (Auto) Neut # (Auto) Lymph # (Auto) [place] # (Auto) Eos # (Auto) Baso # (Auto) Neutrophils % (Manual) Band Neutrophils % Lymphocytes % (Manual) Monocytes % (Manual) Toxic Granulation Platelet Estimate Large Platelets Giant Platelets Polychromasia Hypochromasia (manual) Poikilocytosis (manual Anisocytosis (manual) Ovalocytes Sodium 132 Potassium 3.7 Chloride 98 Carbon Dioxide 25 Anion Gap 12 BUN 42 H Creatinine 3.2 H Est GFR ( Amer) 23 Est GFR (Non-Af Amer) 19 POC Glucose (mg/dL) 175 H Random Glucose 95 D Lactic Acid 1.7 Calcium 8.5 L Prostate Specific Ag 0.290 Assessment & Plan (1) Hematuria Status: Acute (2) UTI (urinary tract infection), bacterial Status: Acute (3) Bacteremia Status: Acute (4) Bifascicular block Status: Acute (5) CKD (chronic kidney disease) Status: Acute - Assessment and Plan (Free Text) Assessment: recurrent pyelo from transplanted kidney with bacteremia-- r/o occult abscess consider MRI as well as evaluation for possible llanes removal 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
--- NOTE | 2018-09-05 18:11 | CP.PCM.CON ---
History of Present Illness - History of Present Illness History of Present Illness: Nephrology Consultation Note: Assessment: critical Acute Kidney Injury (N17.9) likely due to ATN with sepsis Diabetic chronic Kidney Disease (E11.22) Hypertensive Chronic Kidney Disease (I12.9) CKD 3 with cr 2.1 ESRD s/p DDRT 2013 acute pyelonephritis with sepsis with shock CHF, Ca bladder, BPH, obesity Plan No acute need for renal replacement therapy at this time. will need close follow up. may need inpatient transfer to his transplant center Hypertension control with meds as ordered. Maintain hemodynamics stable. Avoid hypotension. Patient not on ACEI/ARB due to recent JUNI and sepsis Monitor Input/Output, daily weights and renal function with basic metabolic panel check bladder sonogram r/o retention continue with IVF. hold BP meds and diuretics continue with iron, MVI. continue with flomax Re: kidney transplant: pt on montly belatacept infusion at [facility], last dose few days ago. will hold myfortic for few days in view of his current clinical condition until sepsis/shock better. prednisone 5 mg/d but will give stress dose steroids few days Dose meds/antibiotics for reduced GFR. Avoid fleets enema/magnesium based la xatives. Avoid nephrotoxins/NSAIDs/ iodinated contrast (unless needed emergently) Glycemic control Further work up/management as per primary team Thanks for allowing me to participate in care of your patient. Will follow patient with you. Please call if any Qs. had d/w team Dr Chema Cornejo Office: [phone] Chief Complaint; burning urination Reason for consult: Acute Kidney Injury, kidney Tx HPI: Pt is a 72 M with hx of diabetes Mellitus ( years), hypertension (years) CHF, Ca bladder, BPH, obesity, ESRD s/p DDRT 2013 admitted with UTI and sepsis. renal consult for Juni and Tx management Denies OTC/herbal meds or NSAIDs No recent iodinated contrast exposure. Noted obvious episodes of low BP (SBP 60- 80s). ROS: Cardiovascular: No chest pain. Pulmonary: No shortness of breath Gastrointestinal: denies abdominal pain No nausea. No vomiting. Genitourinary: c/o pain while urinating. Denies blood in urine. All other negative except as mentioned in HPI Physical Examination: General Appearance: Comfortable, in no acute respiratory distress, co-operative . Vitals reviewed and noted as below Head; Atraumatic, normocephalic ENT: no ulcers no thrush. Tongue is midline. Oropharynx: no rash or ulcers. EYES: Pupils are equal, round and reactive to light accommodation. Eye muscles and extraocular movement intact. Sclera is anicteric. Neck; supple no lymphadenopathy, no thyromegaly or bruit Lungs: Normal respiratory rate/effort. Breath sounds bilateral bit reduced at bases Heart: Normal rate. s1s2 normal. No rub or gallop. Extremities: trace edema. No varicose veins Neurological: Patient is alert, awake and oriented to person, place and time. No focal deficit. Strength bilateral appropriate and equal Skin: Warm and dry. Normal turgor. No rash. Palpitation: Normal elasticity for age Abdomen: Abdomen is soft. Bowel sounds +. There is no abdominal tenderness, no guarding/rigidity no organomegaly Psych: limited insight and normal affect/mood MSK: no joint tenderness or swelling. Digits and nails normal, no deformity : [place] kidney or bladder not palpable. RLQ allograft with mild tenderness Labs/imaging reviewed. Past medical history, past surgical history, family history, social history, allergy reviewed and noted as below Family hx: no hx of CKD. Rest non-contributory Past Patient History - Infectious Disease Hx of Infectious Diseases: None - Past Medical History & Family History Past Medical History?: Yes - Past Social History Smoking Status: Former Smoker - CARDIAC Hx Atrial Fibrillation: Yes Hx Cardia Arrhythmia: Yes (ATRIAL FIB) Hx Congestive Heart Failure: Yes Hx Hypercholesterolemia: Yes Hx Hypertension: Yes Hx Pacemaker: Yes - PULMONARY Hx Pneumonia: Yes Hx Sleep Apnea: Yes - HEENT Hx HEENT Problems: Yes Hx Cataracts: Yes - RENAL Hx Chronic Kidney Disease: Yes (S/P renal transplant) - ENDOCRINE/METABOLIC Hx Hypothyroidism: Yes - INTEGUMENTARY Hx Dermatological Problems: No - MUSCULOSKELETAL/RHEUMATOLOGICAL Hx Arthritis: Yes Hx Fractures: Yes (Left hand finger 60yrs ago) - PSYCHIATRIC Hx Substance Use: No - ANESTHESIA Hx Anesthesia: Yes Hx Anesthesia Reactions: No Hx Malignant Hyperthermia: No Meds Allergies/Adverse Reactions: Allergies Allergy/AdvReac Type Severity Reaction Status Date / Time Penicillins Allergy Intermediate RASH Verified 08/11/18 18:15 - Medications Medications: Current Medications Acetaminophen (Tylenol 325mg Tab) 650 mg PO Q4 PRN PRN Reason: Pain, Mild (1-3) Last Admin: 09/05/18 12:37 Dose: 650 mg Aspirin (Ecotrin) 81 mg PO DAILY [facility] Last Admin: 09/05/18 10:14 Dose: 81 mg Dextrose (Dextrose 50% Inj) 0 ml IV STAT PRN; Protocol PRN Reason: Hypoglycemia Protocol Dextrose (Glutose 15) 0 gm PO ONCE PRN; Protocol PRN Reason: Hypoglycemia Protocol Ergocalciferol (Drisdol 50,000 Intl Units Cap) 1 cap PO Q7D [facility] Last Admin: 09/05/18 12:24 Dose: 1 cap Ferrous Sulfate (Feosol) 325 mg PO DAILY [facility] Last Admin: 09/05/18 10:14 Dose: 325 mg Gabapentin (Neurontin) 100 mg PO DAILY [facility] Last Admin: 09/05/18 10:14 Dose: 100 mg Glucagon (Glucagen Diagnostic Kit) 0 mg IM STAT PRN; Protocol PRN Reason: Hypoglycemia Protocol Hydrocortisone Sodium Succinate (Solu-Cortef) 100 mg IV Q8H [facility] Last Admin: 09/05/18 16:30 Dose: 100 mg Sodium Chloride (Sodium Chloride 0.9%) 1,000 mls @ 100 mls/hr IV .Q10H [facility] Last Admin: 09/05/18 08:01 Dose: Not Given Sodium Chloride (Sodium Chloride 0.9%) 1,000 mls @ 100 mls/hr IV .Q10H [facility] Last Admin: 09/04/18 14:36 Dose: 100 mls/hr Dextrose (Dextrose 5% In Water 1000 Ml) 1,000 mls @ 0 mls/hr IV .Q0M PRN; Protocol PRN Reason: Hypoglycemia Protocol Aztreonam 1 gm/ Sodium (Chloride) 100 mls @ 100 mls/hr IVPB Q8H [facility]; Protocol Last Admin: 09/05/18 12:31 Dose: 100 mls/hr Sodium Chloride (Sodium Chloride 0.9%) 1,000 mls @ 50 mls/hr IV .Q20H [facility] Last Admin: 09/05/18 13:00 Dose: 50 mls/hr Influenza Virus Vaccine (Flucelvax Quad [id number] Syr) 60 mcg IM .ONCE ONE Stop: 09/08/18 10:01 Insulin Aspart (Novolog) 0 unit SC ACHS [facility]; Protocol Last Admin: 09/05/18 16:30 Dose: 2 units Insulin Glargine (Lantus) 30 unit SC [facility] Last Admin: 09/04/18 22:01 Dose: 30 units Levothyroxine Sodium (Synthroid) 75 mcg PO DAILY@0630 [facility] Last Admin: 09/05/18 05:37 Dose: 75 mcg Multivitamins (Hexavitamin) 1 tab PO DAILY [facility] Last Admin: 09/05/18 10:14 Dose: 1 tab Pantoprazole Sodium (Protonix Ec Tab) 40 mg PO DAILY [facility] Last Admin: 09/05/18 10:14 Dose: 40 mg Rosuvastatin Calcium (Crestor) 10 mg PO HS [facility] Last Admin: 09/04/18 21:57 Dose: 10 mg Tamsulosin HCl (Flomax) 0.4 mg PO BID [facility] Last Admin: 09/05/18 17:31 Dose: 0.4 mg Results - Vital Signs Recent Vital Signs: Last Vital Signs Temp 99.9 F H 09/05/18 12:37 Pulse 100 H 09/05/18 12:27 Resp 18 09/05/18 12:27 BP 120/77 09/05/18 12:27 Pulse Ox 94 L 09/05/18 12:27 - Labs Result Diagrams: 09/05/18 08:25 09/05/18 08:25 Labs: Laboratory Results - last 24 hr 09/04/18 09/05/18 09/05/18 21:30 07:09 08:25 WBC 12.7 H RBC 3.59 L Hgb 9.8 L Hct 31.2 L MCV 86.9 MCH 27.3 MCHC 31.4 L RDW 18.3 H Plt Count 144 MPV 10.1 Neut % (Auto) 75.8 H Lymph % (Auto) 7.2 L Cecil % (Auto) 16.2 H Eos % (Auto) 0.3 Baso % (Auto) 0.5 Neut # (Auto) 9.6 H Lymph # (Auto) 0.9 L Cecil # (Auto) 2.1 H Eos # (Auto) 0.0 Baso # (Auto) 0.1 Neutrophils % (Manual) 76 H Band Neutrophils % 7 H Lymphocytes % (Manual) 4 L Monocytes % (Manual) 13 H Toxic Granulation Present Platelet Estimate Normal Large Platelets Present Giant Platelets Present Polychromasia Slight Hypochromasia (manual) Slight Poikilocytosis (manual Slight Anisocytosis (manual) Moderate Ovalocytes Slight Sodium Potassium Chloride Carbon Dioxide Anion Gap BUN Creatinine Est GFR ( Amer) Est GFR (Non-Af Amer) POC Glucose (mg/dL) 173 H 102 Random Glucose Lactic Acid Calcium Prostate Specific Ag 09/05/18 09/05/18 09/05/18 08:25 12:16 15:17 WBC RBC Hgb Hct MCV MCH MCHC RDW Plt Count MPV Neut % (Auto) Lymph % (Auto) Cecil % (Auto) Eos % (Auto) Baso % (Auto) Neut # (Auto) Lymph # (Auto) Cecil # (Auto) Eos # (Auto) Baso # (Auto) Neutrophils % (Manual) Band Neutrophils % Lymphocytes % (Manual) Monocytes % (Manual) Toxic Granulation Platelet Estimate Large Platelets Giant Platelets Polychromasia Hypochromasia (manual) Poikilocytosis (manual Anisocytosis (manual) Ovalocytes Sodium 132 Potassium 3.7 Chloride 98 Carbon Dioxide 25 Anion Gap 12 BUN 42 H Creatinine 3.2 H Est GFR ( Amer) 23 Est GFR (Non-Af Amer) 19 POC Glucose (mg/dL) 175 H Random Glucose 95 D Lactic Acid 1.7 Calcium 8.5 L Prostate Specific Ag 0.290 09/05/18 16:48 WBC RBC Hgb Hct MCV MCH MCHC RDW Plt Count MPV Neut % (Auto) Lymph % (Auto) Cecil % (Auto) Eos % (Auto) Baso % (Auto) Neut # (Auto) Lymph # (Auto) Cecil # (Auto) Eos # (Auto) Baso # (Auto) Neutrophils % (Manual) Band Neutrophils % Lymphocytes % (Manual) Monocytes % (Manual) Toxic Granulation Platelet Estimate Large Platelets Giant Platelets Polychromasia Hypochromasia (manual) Poikilocytosis (manual Anisocytosis (manual) Ovalocytes Sodium Potassium Chloride Carbon Dioxide Anion Gap BUN Creatinine Est GFR ( Amer) Est GFR (Non-Af Amer) POC Glucose (mg/dL) 151 H Random Glucose Lactic Acid Calcium Prostate Specific Ag
[2018-09-05] MEDS: (Lantus) Insulin Glargine, Recombinant SC SCH (21:42)
[2018-09-06 01:10] VITALS: RESP 20
[2018-09-06] MEDS: Sodium Chloride 0.9% 1,000 ML IV SCH ×4 (03:34→11:50)
[2018-09-06] MEDS: Aztreonam 1 GM in Sodium Chloride 0.9% 100 ML IVPB SCH ×3 (05:21→21:32)
[2018-09-06] MEDS: Levothyroxine 75 MCG TAB PO SCH (05:36)
[2018-09-06 06:23] LABS: HEMOGLOBIN 9.9 g/dL (12.0-18.0); MEAN CELL VOLUME 87.3 fL (80.0-94.0); MEAN CORPUSCULAR HEMOGLOBIN 27.8 pg (27.0-31.0); MEAN CORPUSCULAR HGB CONC 31.8 g/dL (33.0-37.0); MEAN PLATELET VOLUME 9.7 fL (7.2-11.7); RBC 3.57 Mil/uL (4.40-5.90); RED CELL DISTRIBUTION WIDTH 18.4 % (11.5-14.5); WHITE BLOOD COUNT 6.6 K/uL (4.8-10.8)
[2018-09-06 06:39] LABS: INR 1.4; PROTHROMBIN TIME 15.4 SECONDS (9.7-12.2)
[2018-09-06 06:56] LABS: ALB/GLOB RATIO 1.4 (1.0-2.1); ALBUMIN 3.6 g/dL (3.5-5.0); CALCIUM 8.5 mg/dl (8.6-10.4)
--- NOTE | 2018-09-06 07:54 | CP.PCM.PN ---
Subjective - Date & Time of Evaluation Date of Evaluation: 09/06/18 Time of Evaluation: 09:00 - Subjective Subjective: Pt is a 72 M with PMHx of DMII, HTN, CHF, bladder CA, BPH, a fib, ESRD s/p DDRT 2013 admitted with UTI and sepsis. Patient recently treated for urosepsis with pyelonephritis at [facility]. Patient lives at [place] and has an i ndwelling llanes. Today patient says he is feeling much better. Patient denies any headache, chest pain, abdominal pain, nausea, vomiting, constipation, or diarrhea. All: Penicillins PMHx: DMII, HTN, CHF, bladder CA, BPH, obesity, ESRD s/p DDRT 2013 Surghx: Renal transplant, right metatarsal amputation, left AVF Objective - Vital Signs/Intake and Output Vital Signs (last 24 hours): Temp Pulse Resp BP Pulse Ox 97.2 F L 79 20 97/59 L 98 09/06/18 00:00 09/06/18 00:00 09/06/18 00:00 09/06/18 00:00 09/06/18 00:00 Intake and Output: 09/06/18 09/06/18 06:59 18:59 Intake Total 640 Output Total 340 Balance 300 - Medications Medications: Current Medications Acetaminophen (Tylenol 325mg Tab) 650 mg PO Q4 PRN PRN Reason: Pain, Mild (1-3) Last Admin: 09/06/18 00:04 Dose: 650 mg Aspirin (Ecotrin) 81 mg PO DAILY [facility] Last Admin: 09/05/18 10:14 Dose: 81 mg Dextrose (Dextrose 50% Inj) 0 ml IV STAT PRN; Protocol PRN Reason: Hypoglycemia Protocol Dextrose (Glutose 15) 0 gm PO ONCE PRN; Protocol PRN Reason: Hypoglycemia Protocol Ergocalciferol (Drisdol 50,000 Intl Units Cap) 1 cap PO Q7D [facility] Last Admin: 09/05/18 12:24 Dose: 1 cap Ferrous Sulfate (Feosol) 325 mg PO DAILY [facility] Last Admin: 09/05/18 10:14 Dose: 325 mg Gabapentin (Neurontin) 100 mg PO DAILY [facility] Last Admin: 09/05/18 10:14 Dose: 100 mg Glucagon (Glucagen Diagnostic Kit) 0 mg IM STAT PRN; Protocol PRN Reason: Hypoglycemia Protocol Hydrocortisone Sodium Succinate (Solu-Cortef) 100 mg IV Q8H [facility] Last Admin: 09/06/18 00:04 Dose: 100 mg Sodium Chloride (Sodium Chloride 0.9%) 1,000 mls @ 100 mls/hr IV .Q10H [facility] Last Admin: 09/06/18 03:34 Dose: Not Given Sodium Chloride (Sodium Chloride 0.9%) 1,000 mls @ 100 mls/hr IV .Q10H [facility] Last Admin: 09/05/18 19:30 Dose: Not Given Dextrose (Dextrose 5% In Water 1000 Ml) 1,000 mls @ 0 mls/hr IV .Q0M PRN; Protocol PRN Reason: Hypoglycemia Protocol Aztreonam 1 gm/ Sodium (Chloride) 100 mls @ 100 mls/hr IVPB Q8H [facility]; Protocol Last Admin: 09/06/18 05:21 Dose: 100 mls/hr Sodium Chloride (Sodium Chloride 0.9%) 1,000 mls @ 50 mls/hr IV .Q20H [facility] Last Admin: 09/06/18 03:34 Dose: 50 mls/hr Influenza Virus Vaccine (Flucelvax Quad 0049-0200 Syr) 60 mcg IM .ONCE ONE Stop: 09/08/18 10:01 Insulin Aspart (Novolog) 0 unit SC [facility]; Protocol Last Admin: 09/05/18 21:42 Dose: Not Given Insulin Glargine (Lantus) 30 unit SC [facility] Last Admin: 09/05/18 21:42 Dose: 30 units Levothyroxine Sodium (Synthroid) 75 mcg PO DAILY@0630 [facility] Last Admin: 09/06/18 05:36 Dose: 75 mcg Multivitamins (Hexavitamin) 1 tab PO DAILY [facility] Last Admin: 09/05/18 10:14 Dose: 1 tab Pantoprazole Sodium (Protonix Ec Tab) 40 mg PO DAILY [facility] Last Admin: 09/05/18 10:14 Dose: 40 mg Rosuvastatin Calcium (Crestor) 10 mg PO [facility] Last Admin: 09/05/18 21:40 Dose: 10 mg Tamsulosin HCl (Flomax) 0.4 mg PO BID [facility] Last Admin: 09/05/18 17:31 Dose: 0.4 mg - Labs Labs: 09/06/18 06:15 03/18/19 06:15 PT 15.4 SECONDS (9.7-12.2) H 09/06/18 06:15 INR 1.4 09/06/18 06:15 APTT 29 SECONDS (21-34) 09/06/18 06:15 - Constitutional Appears: Non-toxic, No Acute Distress - Head Exam Head Exam: ATRAUMATIC, NORMAL INSPECTION, NORMOCEPHALIC - Eye Exam Eye Exam: EOMI, Normal appearance - ENT Exam ENT Exam: Mucous Membranes Moist - Respiratory Exam Respiratory Exam: Clear to Ausculation Bilateral, NORMAL BREATHING PATTERN - Cardiovascular Exam Cardiovascular Exam: REGULAR RHYTHM, RRR, +S1, +S2 - GI/Abdominal Exam GI & Abdominal Exam: Soft, Normal Bowel Sounds - Extremities Exam Extremities Exam: Normal Inspection - Neurological Exam Neurological Exam: Alert, Awake, Oriented x3 - Psychiatric Exam Psychiatric exam: Normal Affect, Normal Mood - Skin Skin Exam: Intact, Normal Color, Warm Assessment and Plan - Assessment and Plan (Free Text) Assessment: Pyelonephritis with Bacteremia ID consulted, Dr. Bloom, help appreciated Nephro consulted, Dr. Cornejo, help appreciated Urology consulted, Dr. Saldaña, help appreciated Meds: Aztreonam 1 gm ivbp q8h NS at 75 cc/hr Hx Renal Transplant as per nephro: pt on monthly belatacept infusion at [facility], last dose few days ago. will hold myfortic for few days until sepsis/shock better. will give stress dose steroids few days Solu-Cortef 50mg iv q8h ESRD Feosol 325mg po daily Multivitamins Sodium Bicarb 650mg po BID Vit D 50,000 u q7d Hypothyroidism Synthroid 75mcg po daily f/u TSH, free T4 DMII Lantus 30 u sc HS ISS hypoglycemia protocol Gabapentin 100mg po daily ASA 81mg po daily accuchecks ACHS BPH Flomax .4mg po BID HLD Crestor 10mg po HS ASA 81mg po daily Prophylaxis Protonix 40mg po daily SCDs Discussed with Dr. Knutson
[2018-09-06] MEDS: (Novolog) Insulin Aspart, Recombinant 100 u/ml 10 ml vial SC SCH ×4 (08:10→21:31)
--- NOTE | 2018-09-06 08:23 | HP ---
HISTORY OF PRESENT ILLNESS: The patient presented to the hospital with chief complaint of weakness, fatigue, tiredness, chills, hematuria. The patient has history of transplant. PHYSICAL EXAMINATION: GENERAL: The patient is awake, alert, and oriented. VITAL SIGNS: Temperature 98, pulse 90. HEENT: Within normal limits. NECK: Supple. CHEST: Symmetrical. HEART: Regular. ABDOMEN: Soft. EXTREMITIES: No edema. IMPRESSION AND PLAN: History of urosepsis, status post transplant. Get bed rest. Antibiotics. Urology and Nephrology consult. Cesar Knutson MD
[2018-09-06] MEDS: Multiple Vitamins Tab PO SCH (10:31)
[2018-09-06] MEDS: Pantoprazole 40 mg EC Tab PO SCH (10:31)
--- NOTE | 2018-09-06 10:55 | CP.PCM.PN ---
Subjective - Date & Time of Evaluation Date of Evaluation: 09/06/18 Time of Evaluation: 10:52 - Subjective Subjective: Nephrology Consultation Note: Assessment: critical Acute Kidney Injury (N17.9) likely due to ATN with sepsis Diabetic chronic Kidney Disease (E11.22) Hypertensive Chronic Kidney Disease (I12.9) CKD 3 with cr 2.1 ESRD s/p DDRT 2013 acute pyelonephritis with sepsis with shock CHF, Ca bladder, BPH, obesity Plan No acute need for renal replacement therapy at this time. will need close follow up. may need inpatient transfer to his transplant center. Pt looks better today. will attempt to reach out to his transplant nephro @ [facility] Hypertension control with meds as ordered. Maintain hemodynamics stable. Avoid hypotension. Patient not on ACEI/ARB due to recent JUNI and sepsis Monitor Input/Output, daily weights and renal function with basic metabolic panel check bladder sonogram r/o retention continue with IVF. hold BP meds and diuretics continue with iron, MVI. continue with flomax added sodium bicarb Re: kidney transplant: pt on montly belatacept infusion at [facility], last dose few days ago. will hold myfortic for few days in view of his current clinical condition until sepsis/shock better. prednisone 5 mg/d but will give stress dose steroids few days, lwered to 50 mg q8hr Dose meds/antibiotics for reduced GFR. Avoid fleets enema/magnesium based laxatives. Avoid nephrotoxins/NSAIDs/ iodinated contrast (unless needed emergen tly) Glycemic control Further work up/management as per primary team Thanks for allowing me to participate in care of your patient. Will follow patient with you. Please call if any Qs. had d/w team Dr Chema Cornejo Office: [phone] Chief Complaint; burning urination Reason for consult: Acute Kidney Injury, kidney Tx HPI: Pt is a 72 M with hx of diabetes Mellitus ( years), hypertension (years) CHF, Ca bladder, BPH, obesity, ESRD s/p DDRT 2013 admitted with UTI and sepsis. renal consult for Juni and Tx management Denies OTC/herbal meds or NSAIDs No recent iodinated contrast exposure. Noted obvious episodes of low BP (SBP 60- 80s). ROS: Cardiovascular: No chest pain. Pulmonary: No shortness of breath Gastrointestinal: denies abdominal pain No nausea. No vomiting. Genitourinary: no pain while urinating. Denies blood in urine. All other negative except as mentioned in HPI Physical Examination: General Appearance: Comfortable, in no acute respiratory distress, co-operative . Vitals reviewed and noted as below Head; Atraumatic, normocephalic ENT: no ulcers no thrush. Tongue is midline. Oropharynx: no rash or ulcers. EYES: Pupils are equal, round and reactive to light accommodation. Eye muscles and extraocular movement intact. Sclera is anicteric. Neck; supple no lymphadenopathy, no thyromegaly or bruit Lungs: Normal respiratory rate/effort. Breath sounds bilateral clerarer Heart: Normal rate. s1s2 normal. No rub or gallop. Extremities: trace edema. No varicose veins Neurological: Patient is alert, awake and oriented to person, place and time. No focal deficit. Strength bilateral appropriate and equal Skin: Warm and dry. Normal turgor. No rash. Palpitation: Normal elasticity for age Abdomen: Abdomen is soft. Bowel sounds +. There is no abdominal tenderness, no guarding/rigidity no organomegaly Psych: limited insight and normal affect/mood MSK: no joint tenderness or swelling. Digits and nails normal, no deformity : [place] kidney or bladder not palpable. RLQ allograft with mild tenderness Labs/imaging reviewed. Past medical history, past surgical history, family history, social history, allergy reviewed and noted as below Family hx: no hx of CKD. Rest non-contributory Objective - Vital Signs/Intake and Output Vital Signs (last 24 hours): Temp Pulse Resp BP Pulse Ox 98.6 F 74 20 100/90 97 09/06/18 08:11 09/06/18 08:11 09/06/18 08:11 09/06/18 08:11 09/06/18 08:11 Intake and Output: 09/06/18 09/06/18 06:59 18:59 Intake Total 640 Output Total 340 Balance 300 - Medications Medications: Current Medications Acetaminophen (Tylenol 325mg Tab) 650 mg PO Q4 PRN PRN Reason: Pain, Mild (1-3) Last Admin: 09/06/18 00:04 Dose: 650 mg Aspirin (Ecotrin) 81 mg PO DAILY [facility] Last Admin: 09/06/18 10:30 Dose: 81 mg Dextrose (Dextrose 50% Inj) 0 ml IV STAT PRN; Protocol PRN Reason: Hypoglycemia Protocol Dextrose (Glutose 15) 0 gm PO ONCE PRN; Protocol PRN Reason: Hypoglycemia Protocol Ergocalciferol (Drisdol 50,000 Intl Units Cap) 1 cap PO Q7D [facility] Last Admin: 09/05/18 12:24 Dose: 1 cap Ferrous Sulfate (Feosol) 325 mg PO DAILY [facility] Last Admin: 09/06/18 10:30 Dose: 325 mg Gabapentin (Neurontin) 100 mg PO DAILY [facility] Last Admin: 09/06/18 10:31 Dose: 100 mg Glucagon (Glucagen Diagnostic Kit) 0 mg IM STAT PRN; Protocol PRN Reason: Hypoglycemia Protocol Hydrocortisone Sodium Succinate (Solu-Cortef) 50 mg IV Q8H [facility] Dextrose (Dextrose 5% In Water 1000 Ml) 1,000 mls @ 0 mls/hr IV .Q0M PRN; Protocol PRN Reason: Hypoglycemia Protocol Aztreonam 1 gm/ Sodium (Chloride) 100 mls @ 100 mls/hr IVPB Q8H [facility]; Protocol Last Admin: 09/06/18 05:21 Dose: 100 mls/hr Influenza Virus Vaccine (Flucelvax Quad [id number] Syr) 60 mcg IM .ONCE ONE Stop: 09/08/18 10:01 Insulin Aspart (Novolog) 0 unit SC [facility]; Protocol Last Admin: 09/06/18 08:10 Dose: 4 units Insulin Glargine (Lantus) 30 unit SC [facility] Last Admin: 09/05/18 21:42 Dose: 30 units Levothyroxine Sodium (Synthroid) 75 mcg PO DAILY@0630 [facility] Last Admin: 09/06/18 05:36 Dose: 75 mcg Multivitamins (Hexavitamin) 1 tab PO DAILY [facility] Last Admin: 09/06/18 10:31 Dose: 1 tab Pantoprazole Sodium (Protonix Ec Tab) 40 mg PO DAILY [facility] Last Admin: 09/06/18 10:31 Dose: 40 mg Rosuvastatin Calcium (Crestor) 10 mg PO HS [facility] Last Admin: 09/05/18 21:40 Dose: 10 mg Sodium Bicarbonate (Sodium Bicarbonate Tab) 650 mg PO BID [facility] Last Admin: 09/06/18 10:30 Dose: 650 mg Tamsulosin HCl (Flomax) 0.4 mg PO BID [facility] Last Admin: 09/06/18 10:31 Dose: 0.4 mg - Labs Labs: 09/06/18 06:15 09/06/18 06:15 PT 15.4 SECONDS (9.7-12.2) H 09/06/18 06:15 INR 1.4 09/06/18 06:15 APTT 29 SECONDS (21-34) 09/06/18 06:15
[2018-09-06] MEDS ORDERED: Sodium Chloride 0.9% 1,000 ML IV SCH (11:00)
--- NOTE | 2018-09-06 11:52 | CP.PCM.PN ---
Subjective - Date & Time of Evaluation Date of Evaluation: 09/06/18 Time of Evaluation: 09:00 - Subjective Subjective: seen on rounds orders written Objective - Vital Signs/Intake and Output Vital Signs (last 24 hours): Temp Pulse Resp BP Pulse Ox 98.6 F 74 20 100/90 97 09/06/18 08:11 09/06/18 08:11 09/06/18 08:11 09/06/18 08:11 09/06/18 08:11 Intake and Output: 09/06/18 09/06/18 06:59 18:59 Intake Total 640 Output Total 340 Balance 300 - Medications Medications: Current Medications Acetaminophen (Tylenol 325mg Tab) 650 mg PO Q4 PRN PRN Reason: Pain, Mild (1-3) Last Admin: 09/06/18 00:04 Dose: 650 mg Aspirin (Ecotrin) 81 mg PO DAILY [facility] Last Admin: 09/06/18 10:30 Dose: 81 mg Dextrose (Dextrose 50% Inj) 0 ml IV STAT PRN; Protocol PRN Reason: Hypoglycemia Protocol Dextrose (Glutose 15) 0 gm PO ONCE PRN; Protocol PRN Reason: Hypoglycemia Protocol Ergocalciferol (Drisdol 50,000 Intl Units Cap) 1 cap PO Q7D [facility] Last Admin: 09/05/18 12:24 Dose: 1 cap Ferrous Sulfate (Feosol) 325 mg PO DAILY [facility] Last Admin: 09/06/18 10:30 Dose: 325 mg Gabapentin (Neurontin) 100 mg PO DAILY [facility] Last Admin: 09/06/18 10:31 Dose: 100 mg Glucagon (Glucagen Diagnostic Kit) 0 mg IM STAT PRN; Protocol PRN Reason: Hypoglycemia Protocol Hydrocortisone Sodium Succinate (Solu-Cortef) 50 mg IV Q8H [facility] Dextrose (Dextrose 5% In Water 1000 Ml) 1,000 mls @ 0 mls/hr IV .Q0M PRN; Protocol PRN Reason: Hypoglycemia Protocol Aztreonam 1 gm/ Sodium (Chloride) 100 mls @ 100 mls/hr IVPB Q8H [facility]; Protocol Last Admin: 09/06/18 05:21 Dose: 100 mls/hr Sodium Chloride (Sodium Chloride 0.9%) 1,000 mls @ 75 mls/hr IV .[id number] [facility] Last Admin: 09/06/18 11:50 Dose: Not Given Influenza Virus Vaccine (Flucelvax Quad 4728-5338 Syr) 60 mcg IM .ONCE ONE Stop: 09/08/18 10:01 Insulin Aspart (Novolog) 0 unit SC [facility]; Protocol Last Admin: 09/06/18 11:39 Dose: 10 units Insulin Glargine (Lantus) 30 unit SC [facility] Last Admin: 09/05/18 21:42 Dose: 30 units Levothyroxine Sodium (Synthroid) 75 mcg PO DAILY@0630 [facility] Last Admin: 09/06/18 05:36 Dose: 75 mcg Multivitamins (Hexavitamin) 1 tab PO DAILY [facility] Last Admin: 09/06/18 10:31 Dose: 1 tab Pantoprazole Sodium (Protonix Ec Tab) 40 mg PO DAILY [facility] Last Admin: 09/06/18 10:31 Dose: 40 mg Rosuvastatin Calcium (Crestor) 10 mg PO [facility] Last Admin: 09/05/18 21:40 Dose: 10 mg Sodium Bicarbonate (Sodium Bicarbonate Tab) 650 mg PO BID [facility] Last Admin: 09/06/18 10:30 Dose: 650 mg Tamsulosin HCl (Flomax) 0.4 mg PO BID [facility] Last Admin: 09/06/18 10:31 Dose: 0.4 mg - Labs Labs: 09/06/18 06:15 09/06/18 06:15 PT 15.4 SECONDS (9.7-12.2) H 09/06/18 06:15 INR 1.4 09/06/18 06:15 APTT 29 SECONDS (21-34) 09/06/18 06:15 - Constitutional Appears: Well - Head Exam Head Exam: ATRAUMATIC, NORMAL INSPECTION, NORMOCEPHALIC - Eye Exam Eye Exam: EOMI, Normal appearance, PERRL Pupil Exam: NORMAL ACCOMODATION, PERRL - ENT Exam ENT Exam: Mucous Membranes Moist, Normal Exam - Neck Exam Neck Exam: Full ROM, Normal Inspection. absent: Lymphadenopathy - Respiratory Exam Respiratory Exam: Clear to Ausculation Bilateral, NORMAL BREATHING PATTERN - Cardiovascular Exam Cardiovascular Exam: REGULAR RHYTHM, +S1, +S2. absent: Murmur - GI/Abdominal Exam GI & Abdominal Exam: Soft, Normal Bowel Sounds. absent: Tenderness - Rectal Exam Rectal Exam: Deferred - Extremities Exam Extremities Exam: Full ROM, Normal Capillary Refill, Normal Inspection. absent: Joint Swelling, Pedal Edema - Back Exam Back Exam: NORMAL INSPECTION - Neurological Exam Neurological Exam: Alert, Awake, CN II-XII Intact, Normal Gait, Oriented x3 - Psychiatric Exam Psychiatric exam: Normal Affect, Normal Mood - Skin Skin Exam: Dry, Intact, Normal Color, Warm Assessment and Plan (1) Hematuria Status: Acute (2) UTI (urinary tract infection), bacterial Status: Acute (3) Bacteremia Status: Acute (4) Bifascicular block Status: Acute (5) CKD (chronic kidney disease) Status: Acute - Assessment and Plan (Free Text) Assessment: cont iv antibiotics consider eval follow up blood cultures
--- NOTE | 2018-09-06 14:31 | US ---
Date of service: 2018-09-06 13:13:51 PROCEDURE: Ultrasound of urinary bladder HISTORY: SRUTHI. please assess for PVR as well COMPARISON: Not available TECHNIQUE: Transabdominal FINDINGS: The distended urinary bladder measures 220.8 cc volume. The bladder wall is smooth. There is no intraluminal mass. Ureteral jets are not identified. Postvoid, the residual volume in the urinary bladder is 22.1 cc. IMPRESSION: 22.1 cc postvoid residual.
[2018-09-06] MEDS ORDERED: Mycophenolic Acid DR 360 mg Tab PO SCH ×2 (18:00→19:00)
[2018-09-06] MEDS ORDERED: (Novolog) Insulin Aspart, Recombinant 100 u/ml 10 ml vial SC STA (19:32)
[2018-09-06] MEDS: (Lantus) Insulin Glargine, Recombinant SC SCH (21:31)
--- NOTE | 2018-09-06 23:56 | CP.PCM.CON ---
History of Present Illness - History of Present Illness History of Present Illness: UROLOGY CONSULTATION IMP: UTI HX OF BPH HX OF BLADDER CANCER RENAL TRANSPLANTATION FULL NOTE TF Past Patient History - Infectious Disease Hx of Infectious Diseases: None - Past Medical History & Family History Past Medical History?: Yes - Past Social History Smoking Status: Former Smoker - CARDIAC Hx Atrial Fibrillation: Yes Hx Cardia Arrhythmia: Yes (ATRIAL FIB) Hx Congestive Heart Failure: Yes Hx Hypercholesterolemia: Yes Hx Hypertension: Yes Hx Pacemaker: Yes - PULMONARY Hx Pneumonia: Yes Hx Sleep Apnea: Yes - HEENT Hx HEENT Problems: Yes Hx Cataracts: Yes - RENAL Hx Chronic Kidney Disease: Yes (S/P renal transplant) - ENDOCRINE/METABOLIC Hx Hypothyroidism: Yes - INTEGUMENTARY Hx Dermatological Problems: No - MUSCULOSKELETAL/RHEUMATOLOGICAL Hx Arthritis: Yes Hx Fractures: Yes (Left hand finger 60yrs ago) - PSYCHIATRIC Hx Substance Use: No - ANESTHESIA Hx Anesthesia: Yes Hx Anesthesia Reactions: No Hx Malignant Hyperthermia: No Meds Allergies/Adverse Reactions: Allergies Allergy/AdvReac Type Severity Reaction Status Date / Time Penicillins Allergy Intermediate RASH Verified 08/11/18 18:15 - Medications Medications: Current Medications Acetaminophen (Tylenol 325mg Tab) 650 mg PO Q4 PRN PRN Reason: Pain, Mild (1-3) Last Admin: 09/06/18 00:04 Dose: 650 mg Aspirin (Ecotrin) 81 mg PO DAILY [facility] Last Admin: 09/06/18 10:30 Dose: 81 mg Dextrose (Dextrose 50% Inj) 0 ml IV STAT PRN; Protocol PRN Reason: Hypoglycemia Protocol Dextrose (Glutose 15) 0 gm PO ONCE PRN; Protocol PRN Reason: Hypoglycemia Protocol Ergocalciferol (Drisdol 50,000 Intl Units Cap) 1 cap PO Q7D [facility] Last Admin: 09/05/18 12:24 Dose: 1 cap Ferrous Sulfate (Feosol) 325 mg PO DAILY [facility] Last Admin: 09/06/18 10:30 Dose: 325 mg Gabapentin (Neurontin) 100 mg PO DAILY [facility] Last Admin: 09/06/18 10:31 Dose: 100 mg Glucagon (Glucagen Diagnostic Kit) 0 mg IM STAT PRN; Protocol PRN Reason: Hypoglycemia Protocol Hydrocortisone Sodium Succinate (Solu-Cortef) 50 mg IV Q8H [facility] Last Admin: 09/06/18 21:52 Dose: 50 mg Dextrose (Dextrose 5% In Water 1000 Ml) 1,000 mls @ 0 mls/hr IV .Q0M PRN; Prot ocol PRN Reason: Hypoglycemia Protocol Aztreonam 1 gm/ Sodium (Chloride) 100 mls @ 100 mls/hr IVPB Q8H [facility]; Protocol Last Admin: 09/06/18 21:32 Dose: 100 mls/hr Sodium Chloride (Sodium Chloride 0.9%) 1,000 mls @ 75 mls/hr IV .[id number] [facility] Last Admin: 09/06/18 11:50 Dose: Not Given Influenza Virus Vaccine (Flucelvax Quad 8030-8974 Syr) 60 mcg IM .ONCE ONE Stop: 09/08/18 10:01 Insulin Aspart (Novolog) 0 unit SC [facility]; Protocol Last Admin: 09/06/18 21:31 Dose: 4 units Insulin Glargine (Lantus) 30 unit SC [facility] Last Admin: 09/06/18 21:31 Dose: 30 units Levothyroxine Sodium (Synthroid) 75 mcg PO DAILY@0630 [facility] Last Admin: 09/06/18 05:36 Dose: 75 mcg Multivitamins (Hexavitamin) 1 tab PO DAILY [facility] Last Admin: 09/06/18 10:31 Dose: 1 tab Mycophenolate Sodium (Myfortic Dr) 360 mg PO DAILY@1900 [facility] Last Admin: 09/06/18 19:02 Dose: 360 mg Pantoprazole Sodium (Protonix Ec Tab) 40 mg PO DAILY [facility] Last Admin: 09/06/18 10:31 Dose: 40 mg Rosuvastatin Calcium (Crestor) 10 mg PO [facility] Last Admin: 09/06/18 21:32 Dose: 10 mg Sodium Bicarbonate (Sodium Bicarbonate Tab) 650 mg PO BID [facility] Last Admin: 09/06/18 17:46 Dose: 650 mg Tamsulosin HCl (Flomax) 0.4 mg PO BID [facility] Last Admin: 09/06/18 17:46 Dose: 0.4 mg Results - Vital Signs Recent Vital Signs: Last Vital Signs Temp 97.5 F L 09/06/18 15:00 Pulse 72 09/06/18 15:00 Resp 20 09/06/18 15:00 BP 108/61 09/06/18 15:00 Pulse Ox 96 09/06/18 16:20 - Labs Result Diagrams: 09/06/18 06:15 09/06/18 06:15 Labs: Laboratory Results - last 24 hr 09/06/18 09/06/18 09/06/18 06:15 06:15 06:15 WBC 6.6 RBC 3.57 L Hgb 9.9 L Hct 31.2 L MCV 87.3 MCH 27.8 MCHC 31.8 L RDW 18.4 H Plt Count 122 L D MPV 9.7 Differential Comment PT 15.4 H INR 1.4 APTT 29 Sodium 131 L Potassium 4.4 Chloride 97 L Carbon Dioxide 19 L Anion Gap 20 BUN 48 H Creatinine 3.7 H Est GFR ( Amer) 20 Est GFR (Non-Af Amer) 16 POC Glucose (mg/dL) Random Glucose 270 H D Calcium 8.5 L Phosphorus 5.0 H Magnesium 2.1 Total Bilirubin 1.5 H AST 22 ALT 10 L D Alkaline Phosphatase 107 Total Protein 6.0 L Albumin 3.6 Globulin 2.5 Albumin/Globulin Ratio 1.4 Prostate Specific Ag 0.289 09/06/18 09/06/18 09/06/18 07:31 11:33 16:03 WBC RBC Hgb Hct MCV MCH MCHC RDW Plt Count MPV Differential Comment PT INR APTT Sodium Potassium Chloride Carbon Dioxide Anion Gap BUN Creatinine Est GFR ( Amer) Est GFR (Non-Af Amer) POC Glucose (mg/dL) 263 H 450 H* > 500 H* Random Glucose Calcium Phosphorus Magnesium Total Bilirubin AST ALT Alkaline Phosphatase Total Protein Albumin Globulin Albumin/Globulin Ratio Prostate Specific Ag 09/06/18 09/06/18 19:15 21:18 WBC RBC Hgb Hct MCV MCH MCHC RDW Plt Count MPV Differential Comment PT INR APTT Sodium Potassium Chloride Carbon Dioxide Anion Gap BUN Creatinine Est GFR ( Amer) Est GFR (Non-Af Amer) POC Glucose (mg/dL) > 500 H* 463 H* Random Glucose Calcium Phosphorus Magnesium Total Bilirubin AST ALT Alkaline Phosphatase Total Protein Albumin Globulin Albumin/Globulin Ratio Prostate Specific Ag Assessment & Plan - Date & Time Date: 09/06/18 Time: 11:00
[2018-09-07] MEDS: Sodium Chloride 0.9% 1,000 ML IV SCH (00:20)
[2018-09-07] MEDS: Aztreonam 1 GM in Sodium Chloride 0.9% 100 ML IVPB SCH ×3 (05:21→21:25)
[2018-09-07] MEDS: Levothyroxine 75 MCG TAB PO SCH (05:38)
[2018-09-07] MEDS: (Novolog) Insulin Aspart, Recombinant 100 u/ml 10 ml vial SC SCH ×4 (07:33→21:53)
[2018-09-07 08:00] LABS: BASO % 0.1 % (0.0-2.0); EOS % 0.2 % (0.0-4.0); HEMOGLOBIN 9.7 g/dL (12.0-18.0); LYMPH # 0.2 K/uL (1.0-4.3); LYMPH % 2.9 % (20.0-40.0); MEAN CELL VOLUME 86.6 fL (80.0-94.0); MEAN CORPUSCULAR HEMOGLOBIN 27.3 pg (27.0-31.0); MEAN CORPUSCULAR HGB CONC 31.6 g/dL (33.0-37.0); MEAN PLATELET VOLUME 10.4 fL (7.2-11.7); MONO # 0.5 K/uL (0.0-0.8); MONO % 6.2 % (0.0-10.0); NEUT # 6.9 K/uL (1.8-7.0); NEUT % 90.6 % (50.0-75.0); RBC 3.55 Mil/uL (4.40-5.90); RED CELL DISTRIBUTION WIDTH 18.2 % (11.5-14.5); WHITE BLOOD COUNT 7.6 K/uL (4.8-10.8)
[2018-09-07 08:01] LABS: PLATELET COUNT 132 K/uL (130-400)
[2018-09-07 08:29] LABS: ALB/GLOB RATIO 1.4 (1.0-2.1); ALBUMIN 3.3 g/dL (3.5-5.0); CALCIUM 8.5 mg/dl (8.6-10.4)
[2018-09-07] MEDS: Multiple Vitamins Tab PO SCH (09:24)
[2018-09-07] MEDS: Pantoprazole 40 mg EC Tab PO SCH (09:24)
--- NOTE | 2018-09-07 10:00 | CP.PCM.PN ---
Subjective - Date & Time of Evaluation Date of Evaluation: 09/07/18 Time of Evaluation: 10:00 - Subjective Subjective: PGY2 Medicine Note for Dr. Knutson Patient seen and examined this morning at bedside. No acute events overnight. Patient states that he is starting to feel much better. Denies fevers, chills, nausea, vomiting, diarrhea, constipation, pain with urination or blood in urine. Objective - Vital Signs/Intake and Output Vital Signs (last 24 hours): Temp Pulse Resp BP Pulse Ox 97.5 F L 75 20 117/71 99 09/07/18 07:52 09/07/18 07:52 09/07/18 07:52 09/07/18 07:52 09/07/18 07:52 Intake and Output: 09/07/18 09/07/18 06:59 18:59 Intake Total 1340 Output Total 1500 Balance -160 - Medications Medications: Current Medications Acetaminophen (Tylenol 325mg Tab) 650 mg PO Q4 PRN PRN Reason: Pain, Mild (1-3) Last Admin: 09/06/18 00:04 Dose: 650 mg Aspirin (Ecotrin) 81 mg PO DAILY [facility] Last Admin: 09/07/18 09:24 Dose: 81 mg Dextrose (Dextrose 50% Inj) 0 ml IV STAT PRN; Protocol PRN Reason: Hypoglycemia Protocol Dextrose (Glutose 15) 0 gm PO ONCE PRN; Protocol PRN Reason: Hypoglycemia Protocol Ergocalciferol (Drisdol 50,000 Intl Units Cap) 1 cap PO Q7D [facility] Last Admin: 09/05/18 12:24 Dose: 1 cap Ferrous Sulfate (Feosol) 325 mg PO DAILY [facility] Last Admin: 09/07/18 09:24 Dose: 325 mg Gabapentin (Neurontin) 100 mg PO DAILY [facility] Last Admin: 09/07/18 09:24 Dose: 100 mg Glucagon (Glucagen Diagnostic Kit) 0 mg IM STAT PRN; Protocol PRN Reason: Hypoglycemia Protocol Hydrocortisone Sodium Succinate (Solu-Cortef) 50 mg IV Q8H [facility] Last Admin: 09/07/18 05:22 Dose: 50 mg Dextrose (Dextrose 5% In Water 1000 Ml) 1,000 mls @ 0 mls/hr IV .Q0M PRN; Pr otocol PRN Reason: Hypoglycemia Protocol Aztreonam 1 gm/ Sodium (Chloride) 100 mls @ 100 mls/hr IVPB Q8H [facility]; Protocol Last Admin: 09/07/18 05:21 Dose: 100 mls/hr Sodium Chloride (Sodium Chloride 0.9%) 1,000 mls @ 75 mls/hr IV .[id number] [facility] Last Admin: 09/07/18 00:20 Dose: Not Given Influenza Virus Vaccine (Flucelvax Quad [id number] Syr) 60 mcg IM .ONCE ONE Stop: 09/08/18 10:01 Insulin Aspart (Novolog) 0 unit SC [facility]; Protocol Last Admin: 09/07/18 07:33 Dose: 6 units Insulin Glargine (Lantus) 30 unit SC [facility] Last Admin: 09/06/18 21:31 Dose: 30 units Levothyroxine Sodium (Synthroid) 75 mcg PO DAILY@0630 [facility] Last Admin: 09/07/18 05:38 Dose: 75 mcg Multivitamins (Hexavitamin) 1 tab PO DAILY [facility] Last Admin: 09/07/18 09:24 Dose: 1 tab Mycophenolate Sodium (Myfortic Dr) 360 mg PO DAILY@1900 [facility] Last Admin: 09/06/18 19:02 Dose: 360 mg Pantoprazole Sodium (Protonix Ec Tab) 40 mg PO DAILY [facility] Last Admin: 09/07/18 09:24 Dose: 40 mg Rosuvastatin Calcium (Crestor) 10 mg PO [facility] Last Admin: 09/06/18 21:32 Dose: 10 mg Sodium Bicarbonate (Sodium Bicarbonate Tab) 650 mg PO BID [facility] Last Admin: 09/07/18 09:24 Dose: 650 mg Tamsulosin HCl (Flomax) 0.4 mg PO BID [facility] Last Admin: 09/07/18 09:20 Dose: 0.4 mg - Labs Labs: 09/07/18 07:46 09/07/18 07:46 PT 15.4 SECONDS (9.7-12.2) H 09/06/18 06:15 INR 1.4 09/06/18 06:15 APTT 29 SECONDS (21-34) 09/06/18 06:15 - Constitutional Appears: Non-toxic, No Acute Distress - Head Exam Head Exam: ATRAUMATIC, NORMOCEPHALIC - Eye Exam Eye Exam: Normal appearance - ENT Exam ENT Exam: Mucous Membranes Moist - Respiratory Exam Respiratory Exam: Clear to Ausculation Bilateral, NORMAL BREATHING PATTERN. absent: Accessory Muscle Use, Rales, Rhonchi, Wheezes, Respiratory Distress - Cardiovascular Exam Cardiovascular Exam: REGULAR RHYTHM, +S1, +S2 - GI/Abdominal Exam GI & Abdominal Exam: Soft - Extremities Exam Extremities Exam: absent: Pedal Edema, Tenderness - Neurological Exam Neurological Exam: Alert, Awake - Psychiatric Exam Psychiatric exam: Normal Affect, Normal Mood - Skin Skin Exam: Dry, Warm Assessment and Plan - Assessment and Plan (Free Text) Plan: Pyelonephritis with Bacteremia ID consulted, Dr. Bloom, help appreciated Nephro consulted, Dr. Cornejo, help appreciated Urology consulted, Dr. Saldaña, help appreciated Meds: Aztreonam 1 gm ivbp q8h NS at 75 cc/hr Hx Renal Transplant as per nephro: pt on monthly belatacept infusion at [facility], last dose few days ago. Restart Myfortic 360mg PO BID on 09/07, Prednisone 5mg PO daily and discontinue stress dose of steroids. ESRD Feosol 325mg po daily Multivitamins Sodium Bicarb 650mg po BID Vit D 50,000 u q7d Hypothyroidism Synthroid 75mcg po daily TSH 0.42 Free T4 1.62 DMII Lantus 30 u sc HS ISS hypoglycemia protocol Gabapentin 100mg po daily ASA 81mg po daily accuchecks ACHS BPH Flomax .4mg po BID HLD Crestor 10mg po HS ASA 81mg po daily Prophylaxis Protonix 40mg po daily SCDs Discussed with Dr. Knutson
[2018-09-07] MEDS ORDERED: Potassium Chloride 20 mEq ER Tab PO SCH (10:30)
[2018-09-07] MEDS: Mycophenolic Acid DR 360 mg Tab PO SCH ×2 (10:31→19:00)
[2018-09-07 11:12] LABS: BANDS 6 % (0-2); LYMPHOCYTE 3 % (20-40); MONOCYTE 9 % (0-10); NEUTROPHIL 82 % (50-75); PLATELET ESTIMATE NORMAL (NORMAL); TOTAL CELLS COUNTED 100
[2018-09-07 11:13] LABS: ANISOCYTOSIS SLIGHT; BURR CELLS SLIGHT; HYPOCHROMIC SLIGHT; OVALOCYTES MODERATE; POIKILOCYTOSIS SLIGHT
--- NOTE | 2018-09-07 12:09 | CP.PCM.PN ---
Subjective - Date & Time of Evaluation Date of Evaluation: 09/07/18 Time of Evaluation: 07:00 - Subjective Subjective: examined at bedside chart reviewed orders signed Objective - Vital Signs/Intake and Output Vital Signs (last 24 hours): Temp Pulse Resp BP Pulse Ox 97.5 F L 75 20 117/71 99 09/07/18 07:52 09/07/18 07:52 09/07/18 07:52 09/07/18 07:52 09/07/18 07:52 Intake and Output: 09/07/18 09/07/18 06:59 18:59 Intake Total 1340 Output Total 1500 Balance -160 - Medications Medications: Current Medications Acetaminophen (Tylenol 325mg Tab) 650 mg PO Q4 PRN PRN Reason: Pain, Mild (1-3) Last Admin: 09/06/18 00:04 Dose: 650 mg Aspirin (Ecotrin) 81 mg PO DAILY [facility] Last Admin: 09/07/18 09:24 Dose: 81 mg Dextrose (Dextrose 50% Inj) 0 ml IV STAT PRN; Protocol PRN Reason: Hypoglycemia Protocol Dextrose (Glutose 15) 0 gm PO ONCE PRN; Protocol PRN Reason: Hypoglycemia Protocol Ergocalciferol (Drisdol 50,000 Intl Units Cap) 1 cap PO Q7D [facility] Last Admin: 09/05/18 12:24 Dose: 1 cap Ferrous Sulfate (Feosol) 325 mg PO DAILY [facility] Last Admin: 09/07/18 09:24 Dose: 325 mg Gabapentin (Neurontin) 100 mg PO DAILY [facility] Last Admin: 09/07/18 09:24 Dose: 100 mg Glucagon (Glucagen Diagnostic Kit) 0 mg IM STAT PRN; Protocol PRN Reason: Hypoglycemia Protocol Dextrose (Dextrose 5% In Water 1000 Ml) 1,000 mls @ 0 mls/hr IV .Q0M PRN; Protocol PRN Reason: Hypoglycemia Protocol Aztreonam 1 gm/ Sodium (Chloride) 100 mls @ 100 mls/hr IVPB Q8H [facility]; Protocol Last Admin: 09/07/18 05:21 Dose: 100 mls/hr Influenza Virus Vaccine (Flucelvax Quad [id number] Syr) 60 mcg IM .ONCE ONE Stop: 09/08/18 10:01 Insulin Aspart (Novolog) 0 unit SC [facility]; Protocol Last Admin: 09/07/18 11:19 Dose: 10 units Insulin Glargine (Lantus) 30 unit SC [facility] Last Admin: 09/06/18 21:31 Dose: 30 units Levothyroxine Sodium (Synthroid) 75 mcg PO DAILY@0630 [facility] Last Admin: 09/07/18 05:38 Dose: 75 mcg Multivitamins (Hexavitamin) 1 tab PO DAILY [facility] Last Admin: 09/07/18 09:24 Dose: 1 tab Mycophenolate Sodium (Myfortic Dr) 360 mg PO BID [facility] Last Admin: 09/07/18 10:31 Dose: 360 mg Pantoprazole Sodium (Protonix Ec Tab) 40 mg PO DAILY [facility] Last Admin: 09/07/18 09:24 Dose: 40 mg Prednisone (Prednisone Tab) 5 mg PO DAILY [facility] Rosuvastatin Calcium (Crestor) 10 mg PO [facility] Last Admin: 09/06/18 21:32 Dose: 10 mg Sodium Bicarbonate (Sodium Bicarbonate Tab) 650 mg PO BID [facility] Last Admin: 09/07/18 09:24 Dose: 650 mg Tamsulosin HCl (Flomax) 0.4 mg PO BID [facility] Last Admin: 09/07/18 09:20 Dose: 0.4 mg - Labs Labs: 09/07/18 07:46 09/07/18 07:46 PT 15.4 SECONDS (9.7-12.2) H 09/06/18 06:15 INR 1.4 09/06/18 06:15 APTT 29 SECONDS (21-34) 09/06/18 06:15 - Constitutional Appears: Non-toxic, Chronically Ill - Head Exam Head Exam: NORMOCEPHALIC - Eye Exam Eye Exam: absent: Scleral icterus - ENT Exam ENT Exam: Mucous Membranes Dry - Neck Exam Neck Exam: absent: Lymphadenopathy - Respiratory Exam Respiratory Exam: Decreased Breath Sounds - Cardiovascular Exam Cardiovascular Exam: REGULAR RHYTHM - GI/Abdominal Exam GI & Abdominal Exam: Distended, Soft - Rectal Exam Rectal Exam: Deferred - Exam Exam: NORMAL INSPECTION - Extremities Exam Extremities Exam: absent: Pedal Edema - Back Exam Back Exam: absent: CVA tenderness (L), CVA tenderness (R) Assessment and Plan (1) Hematuria Status: Acute (2) UTI (urinary tract infection), bacterial Status: Acute (3) Bacteremia Status: Acute (4) Bifascicular block Status: Acute (5) CKD (chronic kidney disease) Status: Acute - Assessment and Plan (Free Text) Assessment: cont IV antibiotics for chronic pyelo s/p renal transplant consider gU eval
--- NOTE | 2018-09-07 16:34 | CP.PCM.PN ---
Subjective - Date & Time of Evaluation Date of Evaluation: 09/07/18 Time of Evaluation: 16:32 - Subjective Subjective: Nephrology Consultation Note: Assessment: critical Acute Kidney Injury (N17.9) likely due to ATN with sepsis Diabetic chronic Kidney Disease (E11.22) Hypertensive Chronic Kidney Disease (I12.9) CKD 3 with cr 2.1 ESRD s/p DDRT 2013 acute pyelonephritis with sepsis with shock CHF, Ca bladder, BPH, obesity Plan No acute need for renal replacement therapy at this time. will need close follow up. may need inpatient transfer to his transplant center. Pt looks better today and improving clinically Hypertension control with meds as ordered. Maintain hemodynamics stable. Avoid hypotension. Patient not on ACEI/ARB due to recent JUNI and sepsis Monitor Input/Output, daily weights and renal function with basic metabolic panel d/c IVF. hold BP meds and diuretics continue with iron, MVI. continue with flomax added sodium bicarb check Urine Na Osmol Re: kidney transplant: pt on montly belatacept infusion at [facility], last dose few days ago. gradually increased myfortic, resume prednisone 5 mg/d and stop stress dose steroids Dose meds/antibiotics for reduced GFR. Avoid fleets enema/magnesium based laxatives. Avoid nephrotoxins/NSAIDs/ iodinated contrast (unless needed emergently) Glycemic control Further work up/management as per primary team Thanks for allowing me to participate in care of your patient. Will follow patient with you. Please call if any Qs. had d/w team Dr Chema Corenjo Office: [phone] Chief Complaint; burning urination Reason for consult: Acute Kidney Injury, kidney Tx HPI: Pt is a 72 M with hx of diabetes Mellitus ( years), hypertension (years) CHF, Ca bladder, BPH, obesity, ESRD s/p DDRT 2013 admitted with UTI and sepsis. renal consult for Juni and Tx management Denies OTC/herbal meds or NSAIDs No recent iodinated contrast exposure. Noted obvious episodes of low BP (SBP 60- 80s). ROS: feels better Cardiovascular: No chest pain. Pulmonary: No shortness of breath Gastrointestinal: denies abdominal pain No nausea. No vomiting. Genitourinary: no pain while urinating. Denies blood in urine. All other negative except as mentioned in HPI Physical Examination: General Appearance: Comfortable, in no acute respiratory distress, co-operative . Vitals reviewed and noted as below Head; Atraumatic, normocephalic ENT: no ulcers no thrush. Tongue is midline. Oropharynx: no rash or ulcers. EYES: Pupils are equal, round and reactive to light accommodation. Eye muscles and extraocular movement intact. Sclera is anicteric. Neck; supple no lymphadenopathy, no thyromegaly or bruit Lungs: Normal respiratory rate/effort. Breath sounds bilateral clerarer Heart: Normal rate. s1s2 normal. No rub or gallop. Extremities: 1+ edema. No varicose veins Neurological: Patient is alert, awake and oriented to person, place and time. No focal deficit. Strength bilateral appropriate and equal Skin: Warm and dry. Normal turgor. No rash. Palpitation: Normal elasticity for age Abdomen: Abdomen is soft. Bowel sounds +. There is no abdominal tenderness, no guarding/rigidity no organomegaly Psych: limited insight and normal affect/mood MSK: no joint tenderness or swelling. Digits and nails normal, no deformity : [place] kidney or bladder not palpable. RLQ allograft with mild tenderness Labs/imaging reviewed. Past medical history, past surgical history, family history, social history, allergy reviewed and noted as below Family hx: no hx of CKD. Rest non-contributory Objective - Vital Signs/Intake and Output Vital Signs (last 24 hours): Temp Pulse Resp BP Pulse Ox 97.3 F L 78 20 118/72 100 09/07/18 15:00 09/07/18 15:00 09/07/18 15:00 09/07/18 15:00 09/07/18 15:00 Intake and Output: 09/07/18 09/07/18 06:59 18:59 Intake Total 1340 Output Total 1500 Balance -160 - Medications Medications: Current Medications Acetaminophen (Tylenol 325mg Tab) 650 mg PO Q4 PRN PRN Reason: Pain, Mild (1-3) Last Admin: 09/06/18 00:04 Dose: 650 mg Aspirin (Ecotrin) 81 mg PO DAILY [facility] Last Admin: 09/07/18 09:24 Dose: 81 mg Dextrose (Dextrose 50% Inj) 0 ml IV STAT PRN; Protocol PRN Reason: Hypoglycemia Protocol Dextrose (Glutose 15) 0 gm PO ONCE PRN; Protocol PRN Reason: Hypoglycemia Protocol Ergocalciferol (isdol 50,000 Intl Units Cap) 1 cap PO Q7D [facility] Last Admin: 09/05/18 12:24 Dose: 1 cap Ferrous Sulfate (Feosol) 325 mg PO DAILY [facility] Last Admin: 09/07/18 09:24 Dose: 325 mg Gabapentin (Neurontin) 100 mg PO DAILY [facility] Last Admin: 09/07/18 09:24 Dose: 100 mg Glucagon (Glucagen Diagnostic Kit) 0 mg IM STAT PRN; Protocol PRN Reason: Hypoglycemia Protocol Dextrose (Dextrose 5% In Water 1000 Ml) 1,000 mls @ 0 mls/hr IV .Q0M PRN; Protocol PRN Reason: Hypoglycemia Protocol Aztreonam 1 gm/ Sodium (Chloride) 100 mls @ 100 mls/hr IVPB Q8H [facility]; Protocol Last Admin: 09/07/18 12:46 Dose: 100 mls/hr Influenza Virus Vaccine (Flucelvax Quad [id number] Syr) 60 mcg IM .ONCE ONE Stop: 09/08/18 10:01 Insulin Aspart (Novolog) 0 unit SC [facility]; Protocol Last Admin: 09/07/18 11:19 Dose: 10 units Insulin Glargine (Lantus) 30 unit SC [facility] Last Admin: 09/06/18 21:31 Dose: 30 units Levothyroxine Sodium (Synthroid) 75 mcg PO DAILY@0630 [facility] Last Admin: 09/07/18 05:38 Dose: 75 mcg Multivitamins (Hexavitamin) 1 tab PO DAILY [facility] Last Admin: 09/07/18 09:24 Dose: 1 tab Mycophenolate Sodium (Myfortic Dr) 360 mg PO BID [facility] Last Admin: 09/07/18 10:31 Dose: 360 mg Pantoprazole Sodium (Protonix Ec Tab) 40 mg PO DAILY [facility] Last Admin: 09/07/18 09:24 Dose: 40 mg Prednisone (Prednisone Tab) 5 mg PO DAILY [facility] Rosuvastatin Calcium (Crestor) 10 mg PO HS [facility] Last Admin: 09/06/18 21:32 Dose: 10 mg Sodium Bicarbonate (Sodium Bicarbonate Tab) 650 mg PO BID [facility] Last Admin: 09/07/18 09:24 Dose: 650 mg Tamsulosin HCl (Flomax) 0.4 mg PO BID [facility] Last Admin: 09/07/18 09:20 Dose: 0.4 mg - Labs Labs: 09/07/18 07:46 09/07/18 07:46 PT 15.4 SECONDS (9.7-12.2) H 09/06/18 06:15 INR 1.4 09/06/18 06:15 APTT 29 SECONDS (21-34) 09/06/18 06:15
[2018-09-07] MEDS: (Lantus) Insulin Glargine, Recombinant SC SCH (21:23)
--- NOTE | 2018-09-07 23:22 | PCM.URO ---
Urology Progress Note - General General: No Complaints, Tolerating Diet - Subjective Abdominal Pain: No Flank Pain: No Nausea: No Vomiting: No Voiding Well: Yes Dysuria: Yes (mild, improved) Hematuria: No [place]: No Chest Pain: No Fever & Chills: No - Objective Lab Studies: Reviewed (hct=30 wbc=7.6 creat=3.8) Lab Results Last 24 Hours: Laboratory Results - last 24 hr 09/07/18 09/07/18 09/07/18 02:19 07:05 07:46 WBC 7.6 RBC 3.55 L Hgb 9.7 L Hct 30.7 L MCV 86.6 MCH 27.3 MCHC 31.6 L RDW 18.2 H Plt Count 132 MPV 10.4 Neut % (Auto) 90.6 H Lymph % (Auto) 2.9 L [place] % (Auto) 6.2 Eos % (Auto) 0.2 Baso % (Auto) 0.1 Neut # (Auto) 6.9 Lymph # (Auto) 0.2 L [place] # (Auto) 0.5 Eos # (Auto) 0.0 Baso # (Auto) 0.0 Neutrophils % (Manual) 82 H Band Neutrophils % 6 H Lymphocytes % (Manual) 3 L Monocytes % (Manual) 9 Platelet Estimate Normal Hypochromasia (manual) Slight Poikilocytosis (manual Slight Anisocytosis (manual) Slight Ovalocytes Moderate [place] Cells Slight Sodium Potassium Chloride Carbon Dioxide Anion Gap BUN Creatinine Est GFR ( Amer) Est GFR (Non-Af Amer) POC Glucose (mg/dL) 329 H 323 H Random Glucose Calcium Phosphorus Magnesium Total Bilirubin AST ALT Alkaline Phosphatase Total Protein Albumin Globulin Albumin/Globulin Ratio Free T4 TSH 3rd Generation Urine Osmolality Ur Random Sodium 09/07/18 09/07/18 09/07/18 07:46 07:46 11:09 WBC RBC Hgb Hct MCV MCH MCHC RDW Plt Count MPV Neut % (Auto) Lymph % (Auto) [place] % (Auto) Eos % (Auto) Baso % (Auto) Neut # (Auto) Lymph # (Auto) [place] # (Auto) Eos # (Auto) Baso # (Auto) Neutrophils % (Manual) Band Neutrophils % Lymphocytes % (Manual) Monocytes % (Manual) Platelet Estimate Hypochromasia (manual) Poikilocytosis (manual Anisocytosis (manual) Ovalocytes [place] Cells Sodium 128 L Potassium 3.6 Chloride 97 L Carbon Dioxide 20 L Anion Gap 14 BUN 55 H Creatinine 3.8 H Est GFR ( Amer) 19 Est GFR (Non-Af Amer) 16 POC Glucose (mg/dL) 413 H* Random Glucose 322 H Calcium 8.5 L Phosphorus 3.4 Magnesium 2.1 Total Bilirubin 0.9 AST 20 ALT 19 L D Alkaline Phosphatase 110 Total Protein 5.5 L Albumin 3.3 L Globulin 2.3 Albumin/Globulin Ratio 1.4 Free T4 1.62 TSH 3rd Generation 0.42 L Urine Osmolality Ur Random Sodium 09/07/18 09/07/18 09/07/18 16:32 19:16 19:16 WBC RBC Hgb Hct MCV MCH MCHC RDW Plt Count MPV Neut % (Auto) Lymph % (Auto) [place] % (Auto) Eos % (Auto) Baso % (Auto) Neut # (Auto) Lymph # (Auto) [place] # (Auto) Eos # (Auto) Baso # (Auto) Neutrophils % (Manual) Band Neutrophils % Lymphocytes % (Manual) Monocytes % (Manual) Platelet Estimate Hypochromasia (manual) Poikilocytosis (manual Anisocytosis (manual) Ovalocytes [place] Cells Sodium Potassium Chloride Carbon Dioxide Anion Gap BUN Creatinine Est GFR ( Amer) Est GFR (Non-Af Amer) POC Glucose (mg/dL) 371 H Random Glucose Calcium Phosphorus Magnesium Total Bilirubin AST ALT Alkaline Phosphatase Total Protein Albumin Globulin Albumin/Globulin Ratio Free T4 TSH 3rd Generation Urine Osmolality 239 L Ur Random Sodium 7 09/07/18 21:34 WBC RBC Hgb Hct MCV MCH MCHC RDW Plt Count MPV Neut % (Auto) Lymph % (Auto) [place] % (Auto) Eos % (Auto) Baso % (Auto) Neut # (Auto) Lymph # (Auto) [place] # (Auto) Eos # (Auto) Baso # (Auto) Neutrophils % (Manual) Band Neutrophils % Lymphocytes % (Manual) Monocytes % (Manual) Platelet Estimate Hypochromasia (manual) Poikilocytosis (manual Anisocytosis (manual) Ovalocytes [place] Cells Sodium Potassium Chloride Carbon Dioxide Anion Gap BUN Creatinine Est GFR ( Amer) Est GFR (Non-Af Amer) POC Glucose (mg/dL) 359 H Random Glucose Calcium Phosphorus Magnesium Total Bilirubin AST ALT Alkaline Phosphatase Total Protein Albumin Globulin Albumin/Globulin Ratio Free T4 TSH 3rd Generation Urine Osmolality Ur Random Sodium Intake & Output: Intake & Output 09/07/18 09/07/18 09/08/18 06:59 18:59 06:59 Intake Total 1340 400 Output Total 1500 1100 Balance -160 -700 Intake: Intake, IV Amount 800 100 Right Wrist 800 100 Oral 540 300 Output: Urine 1500 1100 Urine, Voided 1500 1100 Other: # Voids Urine, Voided 1 4 # Bowel Movements 0 Vital Signs: Vital Signs - 24 hr 09/07/18 09/07/18 09/07/18 00:00 07:52 15:00 Temperature 98 F 97.5 F L 97.3 F L Pulse Rate 75 75 78 Respiratory 20 20 20 Rate Blood Pressure 105/68 117/71 118/72 O2 Sat by Pulse 99 99 100 Oximetry - Physical Exam Abdominal Exam: Soft, Non-Tender, Non-Distended Back: No CVA Tenderness Genitalia: Without Inflammation - Plan Intake & Output: Yes Additional Information: IMP: uti. SRUTHI. renal transplant. Hx of bph. Hx of bladder ca - Date & Time of Note Date: 09/07/18 Time: 10:25
[2018-09-08] MEDS: Aztreonam 1 GM in Sodium Chloride 0.9% 100 ML IVPB SCH ×3 (05:10→21:31)
[2018-09-08] MEDS: Levothyroxine 75 MCG TAB PO SCH (05:30)
[2018-09-08 07:41] LABS: CALCIUM 9.1 mg/dl (8.6-10.4)
[2018-09-08] MEDS: Saccharomyces Boulardi 250 mg Cap PO SCH ×3 (08:26→17:36)
[2018-09-08] MEDS: (Novolog) Insulin Aspart, Recombinant 100 u/ml 10 ml vial SC SCH ×4 (08:30→21:31)
[2018-09-08] MEDS ORDERED: Influenza Vaccine 60 mcg/0.5 mL SYR (4YR UP) IM ONE (10:00)
[2018-09-08] MEDS: Multiple Vitamins Tab PO SCH (10:22)
[2018-09-08] MEDS: Pantoprazole 40 mg EC Tab PO SCH (10:22)
[2018-09-08] MEDS: Mycophenolic Acid DR 360 mg Tab PO SCH ×2 (10:25→17:38)
[2018-09-08 11:24] LABS: BASO % 0.6 % (0.0-2.0); EOS # 0.1 K/uL (0.0-0.7); EOS % 2.3 % (0.0-4.0); HEMOGLOBIN 9.3 g/dL (12.0-18.0); LYMPH # 0.5 K/uL (1.0-4.3); LYMPH % 10.1 % (20.0-40.0); MEAN CELL VOLUME 86.2 fL (80.0-94.0); MEAN CORPUSCULAR HEMOGLOBIN 27.8 pg (27.0-31.0); MEAN CORPUSCULAR HGB CONC 32.3 g/dL (33.0-37.0); MEAN PLATELET VOLUME 9.6 fL (7.2-11.7); MONO # 0.5 K/uL (0.0-0.8); MONO % 10.6 % (0.0-10.0); NEUT # 3.7 K/uL (1.8-7.0); NEUT % 76.4 % (50.0-75.0); NRBC % 0.1 % (0.0-2.0); RBC 3.34 Mil/uL (4.40-5.90); RED CELL DISTRIBUTION WIDTH 18.5 % (11.5-14.5); WHITE BLOOD COUNT 4.9 K/uL (4.8-10.8)
[2018-09-08 11:43] LABS: ALB/GLOB RATIO 2.1 (1.0-2.1); ALBUMIN 3.8 g/dL (3.5-5.0); CALCIUM 8.9 mg/dl (8.6-10.4)
--- NOTE | 2018-09-08 12:03 | CP.PCM.PN ---
Subjective - Date & Time of Evaluation Date of Evaluation: 09/08/18 Time of Evaluation: 12:02 - Subjective Subjective: Nephrology Consultation Note: Assessment: stable Acute Kidney Injury (N17.9) likely due to ATN with sepsis Diabetic chronic Kidney Disease (E11.22) Hypertensive Chronic Kidney Disease (I12.9) CKD 3 with cr 2.1 ESRD s/p DDRT 2013 acute pyelonephritis with sepsis with shock CHF, Ca bladder, BPH, obesity Plan No acute need for renal replacement therapy at this time. Pt looks better today and improving clinically Hypertension control with meds as ordered. Maintain hemodynamics stable. Avoid hypotension. Patient not on ACEI/ARB due to recent JUNI and sepsis Monitor Input/Output, daily weights and renal function with basic metabolic panel resume lasix 40 mg/d continue with iron, MVI. continue with flomax added sodium bicarb Re: kidney transplant: pt on montly belatacept infusion at [facility], last dose few days ago. gradually increased myfortic today 720mg bid resume prednisone 5 mg/d Dose meds/antibiotics for reduced GFR. Avoid fleets enema/magnesium based laxatives. Avoid nephrotoxins/NSAIDs/ iodinated contrast (unless needed emergently) Glycemic control Further work up/management as per primary team Thanks for allowing me to participate in care of your patient. Will follow patient with you. Please call if any Qs. had d/w team Dr Chema Cornejo Office: [phone] Chief Complaint; burning urination Reason for consult: Acute Kidney Injury, kidney Tx HPI: Pt is a 72 M with hx of diabetes Mellitus ( years), hypertension (years) CHF, Ca bladder, BPH, obesity, ESRD s/p DDRT 2013 admitted with UTI and sepsis. renal consult for Juni and Tx management Denies OTC/herbal meds or NSAIDs No recent iodinated contrast exposure. Noted obvious episodes of low BP (SBP 60- 80s). ROS: feels better Cardiovascular: No chest pain. Pulmonary: No shortness of breath Gastrointestinal: denies abdominal pain No nausea. No vomiting. Genitourinary: no pain while urinating. Denies blood in urine. All other negative except as mentioned in HPI Physical Examination: General Appearance: Comfortable, in no acute respiratory distress, co-operative . Vitals reviewed and noted as below Head; Atraumatic, normocephalic ENT: no ulcers no thrush. Tongue is midline. Oropharynx: no rash or ulcers. EYES: Pupils are equal, round and reactive to light accommodation. Eye muscles and extraocular movement intact. Sclera is anicteric. Neck; supple no lymphadenopathy, no thyromegaly or bruit Lungs: Normal respiratory rate/effort. Breath sounds bilateral clerarer Heart: Normal rate. s1s2 normal. No rub or gallop. Extremities: 1+ edema. No varicose veins Neurological: Patient is alert, awake and oriented to person, place and time. No focal deficit. Strength bilateral appropriate and equal Skin: Warm and dry. Normal turgor. No rash. Palpitation: Normal elasticity for age Abdomen: Abdomen is soft. Bowel sounds +. There is no abdominal tenderness, no guarding/rigidity no organomegaly Psych: limited insight and normal affect/mood MSK: no joint tenderness or swelling. Digits and nails normal, no deformity : [place] kidney or bladder not palpable. RLQ allograft with mild tenderness Labs/imaging reviewed. Past medical history, past surgical history, family history, social history, allergy reviewed and noted as below Family hx: no hx of CKD. Rest non-contributory Objective - Vital Signs/Intake and Output Vital Signs (last 24 hours): Temp Pulse Resp BP Pulse Ox 98.7 F 77 20 142/78 98 09/08/18 08:00 09/08/18 08:00 09/08/18 08:00 09/08/18 10:19 09/08/18 08:00 Intake and Output: 09/08/18 09/08/18 06:59 18:59 Intake Total 740 Output Total 1900 Balance -1160 - Medications Medications: Current Medications Acetaminophen (Tylenol 325mg Tab) 650 mg PO Q4 PRN PRN Reason: Pain, Mild (1-3) Last Admin: 09/06/18 00:04 Dose: 650 mg Aspirin (Ecotrin) 81 mg PO DAILY [facility] Last Admin: 09/08/18 10:22 Dose: 81 mg Dextrose (Dextrose 50% Inj) 0 ml IV STAT PRN; Protocol PRN Reason: Hypoglycemia Protocol Dextrose (Glutose 15) 0 gm PO ONCE PRN; Protocol PRN Reason: Hypoglycemia Protocol Ergocalciferol (Drisdol 50,000 Intl Units Cap) 1 cap PO Q7D [facility] Last Admin: 09/05/18 12:24 Dose: 1 cap Ferrous Sulfate (Feosol) 325 mg PO DAILY [facility] Last Admin: 09/08/18 10:22 Dose: 325 mg Furosemide (Lasix) 40 mg PO DAILY [facility] Last Admin: 09/08/18 10:19 Dose: 40 mg Gabapentin (Neurontin) 100 mg PO DAILY [facility] Last Admin: 09/08/18 10:22 Dose: 100 mg Glucagon (Glucagen Diagnostic Kit) 0 mg IM STAT PRN; Protocol PRN Reason: Hypoglycemia Protocol Insulin Aspart (Novolog) 0 unit SC [facility]; Protocol Last Admin: 09/08/18 08:30 Dose: 3 units Insulin Glargine (Lantus) 30 unit SC [facility] Last Admin: 09/07/18 21:23 Dose: 30 units Levothyroxine Sodium (Synthroid) 75 mcg PO DAILY@0630 [facility] Last Admin: 09/08/18 05:30 Dose: 75 mcg Multivitamins (Hexavitamin) 1 tab PO DAILY [facility] Last Admin: 09/08/18 10:22 Dose: 1 tab Mycophenolate Sodium (Myfortic Dr) 720 mg PO BID [facility] Last Admin: 09/08/18 10:25 Dose: 720 mg Pantoprazole Sodium (Protonix Ec Tab) 40 mg PO DAILY [facility] Last Admin: 09/08/18 10:22 Dose: 40 mg Prednisone (Prednisone Tab) 5 mg PO DAILY [facility] Last Admin: 09/08/18 10:24 Dose: 5 mg Rosuvastatin Calcium (Crestor) 10 mg PO HS [facility] Last Admin: 09/07/18 21:23 Dose: 10 mg Saccharomyces Boulardii (Florastor) 250 mg PO BID [facility] Last Admin: 09/08/18 10:25 Dose: Not Given Sodium Bicarbonate (Sodium Bicarbonate Tab) 650 mg PO BID [facility] Last Admin: 09/08/18 10:23 Dose: 650 mg Tamsulosin HCl (Flomax) 0.4 mg PO BID [facility] Last Admin: 09/08/18 10:22 Dose: 0.4 mg - Labs Labs: 09/08/18 11:11 09/08/18 11:11 PT 15.4 SECONDS (9.7-12.2) H 09/06/18 06:15 INR 1.4 09/06/18 06:15 APTT 29 SECONDS (21-34) 09/06/18 06:15
--- NOTE | 2018-09-08 14:47 | CP.PCM.PN ---
Subjective - Date & Time of Evaluation Date of Evaluation: 09/08/18 Time of Evaluation: 14:41 - Subjective Subjective: Medicine Note for Dr. Knutson Patient seen and examined at bedside. Patient reports he is doing well. He is requesting to go home, patient is refusing KETAN. Objective - Vital Signs/Intake and Output Vital Signs (last 24 hours): Temp Pulse Resp BP Pulse Ox 98.7 F 77 20 142/78 98 09/08/18 08:00 09/08/18 08:00 09/08/18 08:00 09/08/18 10:19 09/08/18 08:00 Intake and Output: 09/08/18 09/08/18 06:59 18:59 Intake Total 740 Output Total 1900 Balance -1160 - Medications Medications: Current Medications Acetaminophen (Tylenol 325mg Tab) 650 mg PO Q4 PRN PRN Reason: Pain, Mild (1-3) Last Admin: 09/06/18 00:04 Dose: 650 mg Aspirin (Ecotrin) 81 mg PO DAILY [facility] Last Admin: 09/08/18 10:22 Dose: 81 mg Dextrose (Dextrose 50% Inj) 0 ml IV STAT PRN; Protocol PRN Reason: Hypoglycemia Protocol Dextrose (Glutose 15) 0 gm PO ONCE PRN; Protocol PRN Reason: Hypoglycemia Protocol Ergocalciferol (Drisdol 50,000 Intl Units Cap) 1 cap PO Q7D [facility] Last Admin: 09/05/18 12:24 Dose: 1 cap Ferrous Sulfate (Feosol) 325 mg PO DAILY [facility] Last Admin: 09/08/18 10:22 Dose: 325 mg Furosemide (Lasix) 40 mg PO DAILY [facility] Last Admin: 09/08/18 10:19 Dose: 40 mg Gabapentin (Neurontin) 100 mg PO DAILY [facility] Last Admin: 09/08/18 10:22 Dose: 100 mg Glucagon (Glucagen Diagnostic Kit) 0 mg IM STAT PRN; Protocol PRN Reason: Hypoglycemia Protocol Aztreonam 1 gm/ Sodium (Chloride) 100 mls @ 200 mls/hr IVPB Q8H [facility]; Protocol Last Admin: 09/08/18 14:27 Dose: 200 mls/hr Insulin Aspart (Novolog) 0 unit SC [facility]; Protocol Last Admin: 09/08/18 12:28 Dose: 4 units Insulin Glargine (Lantus) 30 unit SC HS [facility] Last Admin: 09/07/18 21:23 Dose: 30 units Levothyroxine Sodium (Synthroid) 75 mcg PO DAILY@0630 [facility] Last Admin: 09/08/18 05:30 Dose: 75 mcg Multivitamins (Hexavitamin) 1 tab PO DAILY [facility] Last Admin: 09/08/18 10:22 Dose: 1 tab Mycophenolate Sodium (Myfortic Dr) 720 mg PO BID [facility] Last Admin: 09/08/18 10:25 Dose: 720 mg Pantoprazole Sodium (Protonix Ec Tab) 40 mg PO DAILY [facility] Last Admin: 09/08/18 10:22 Dose: 40 mg Prednisone (Prednisone Tab) 5 mg PO DAILY [facility] Last Admin: 09/08/18 10:24 Dose: 5 mg Rosuvastatin Calcium (Crestor) 10 mg PO [facility] Last Admin: 09/07/18 21:23 Dose: 10 mg Saccharomyces Boulardii (Florastor) 250 mg PO BID [facility] Last Admin: 09/08/18 10:25 Dose: Not Given Sodium Bicarbonate (Sodium Bicarbonate Tab) 650 mg PO BID [facility] Last Admin: 09/08/18 10:23 Dose: 650 mg Tamsulosin HCl (Flomax) 0.4 mg PO BID [facility] Last Admin: 09/08/18 10:22 Dose: 0.4 mg - Labs Labs: 09/08/18 11:11 09/08/18 11:11 PT 15.4 SECONDS (9.7-12.2) H 09/06/18 06:15 INR 1.4 09/06/18 06:15 APTT 29 SECONDS (21-34) 09/06/18 06:15 - Constitutional Appears: No Acute Distress - Head Exam Head Exam: NORMAL INSPECTION, NORMOCEPHALIC - Eye Exam Eye Exam: EOMI, Normal appearance, PERRL Pupil Exam: NORMAL ACCOMODATION - ENT Exam ENT Exam: Mucous Membranes Moist - Respiratory Exam Respiratory Exam: Clear to Ausculation Bilateral, NORMAL BREATHING PATTERN. absent: Decreased Breath Sounds, Rales, Rhonchi, Wheezes - Cardiovascular Exam Cardiovascular Exam: REGULAR RHYTHM, +S1, +S2 - GI/Abdominal Exam GI & Abdominal Exam: Soft, Normal Bowel Sounds. absent: Distended, Tenderness - Extremities Exam Extremities Exam: Normal Inspection. absent: Pedal Edema, Tenderness - Back Exam Back Exam: absent: CVA tenderness (L), CVA tenderness (R) - Neurological Exam Neurological Exam: Alert, Awake, Oriented x3 - Psychiatric Exam Psychiatric exam: Normal Affect, Normal Mood - Skin Skin Exam: Dry, Intact, Normal Color, Warm - Additional Findings Additional findings: Left AVF noted, right pacemaker noted Assessment and Plan - Assessment and Plan (Free Text) Plan: Pyelonephritis with Bacteremia -- ID consulted, Dr. Bloom, help appreciated -- Urology consulted, Dr. Saldaña, help appreciated Repeat blood cultures negative x 48 hours Meds: Aztreonam 1 gm ivbp q8h Hx Renal Transplant -- Nephro consulted, Dr. Cornejo, help appreciated -as per nephro: pt on monthly belatacept infusion at [facility], last dose few days ago. Restart Myfortic 720mg PO BID on 09/08, Prednisone 5mg PO daily and discontinue stress dose of steroids. ESRD s/p renal transplant Feosol 325mg po daily Multivitamins Sodium Bicarb 650mg po BID Vit D 50,000 u q7d lasix 40mg po daily Hypothyroidism Synthroid 75mcg po daily TSH 0.42 Free T4 1.62 DMII Lantus 30 u sc HS ISS hypoglycemia protocol Gabapentin 100mg po daily ASA 81mg po daily accuchecks ACHS BPH Flomax .4mg po BID HLD Crestor 10mg po HS ASA 81mg po daily Prophylaxis Protonix 40mg po daily SCDs Disposition: Patient is for PICC line placement tomorrow 09/09/18 with IR due to Left AVF and right sided pacemaker. Pending insurance approval for Primaxin. Insurance does not cover Invanz, and Aztreonam has a high daily copay. Will continue working with ID and case management to arrange for home infusion. Discussed with Dr. Knutson, Amy Oneal DO, PGY2
--- NOTE | 2018-09-08 17:50 | CP.PCM.PN ---
Subjective - Date & Time of Evaluation Date of Evaluation: 09/08/18 Time of Evaluation: 06:00 - Subjective Subjective: improving on IV Rx for PICC line and home IV rx Objective - Vital Signs/Intake and Output Vital Signs (last 24 hours): Temp Pulse Resp BP Pulse Ox 97.3 F L 83 20 139/76 98 09/08/18 15:00 09/08/18 15:00 09/08/18 15:00 09/08/18 15:00 09/08/18 15:00 Intake and Output: 09/08/18 09/08/18 06:59 18:59 Intake Total 740 600 Output Total 1900 Balance -1160 600 - Medications Medications: Current Medications Acetaminophen (Tylenol 325mg Tab) 650 mg PO Q4 PRN PRN Reason: Pain, Mild (1-3) Last Admin: 09/06/18 00:04 Dose: 650 mg Aspirin (Ecotrin) 81 mg PO DAILY [facility] Last Admin: 09/08/18 10:22 Dose: 81 mg Dextrose (Dextrose 50% Inj) 0 ml IV STAT PRN; Protocol PRN Reason: Hypoglycemia Protocol Dextrose (Glutose 15) 0 gm PO ONCE PRN; Protocol PRN Reason: Hypoglycemia Protocol Ergocalciferol (Drisdol 50,000 Intl Units Cap) 1 cap PO Q7D [facility] Last Admin: 09/05/18 12:24 Dose: 1 cap Ferrous Sulfate (Feosol) 325 mg PO DAILY [facility] Last Admin: 09/08/18 10:22 Dose: 325 mg Furosemide (Lasix) 40 mg PO DAILY [facility] Last Admin: 09/08/18 10:19 Dose: 40 mg Gabapentin (Neurontin) 100 mg PO DAILY [facility] Last Admin: 09/08/18 10:22 Dose: 100 mg Glucagon (Glucagen Diagnostic Kit) 0 mg IM STAT PRN; Protocol PRN Reason: Hypoglycemia Protocol Aztreonam 1 gm/ Sodium (Chloride) 100 mls @ 200 mls/hr IVPB Q8H [facility]; Protocol Last Admin: 09/08/18 14:27 Dose: 200 mls/hr Insulin Aspart (Novolog) 0 unit SC ACHS [facility]; Protocol Last Admin: 09/08/18 17:35 Dose: 6 units Insulin Glargine (Lantus) 30 unit SC HS [facility] Last Admin: 09/07/18 21:23 Dose: 30 units Levothyroxine Sodium (Synthroid) 75 mcg PO DAILY@0630 [facility] Last Admin: 09/08/18 05:30 Dose: 75 mcg Multivitamins (Hexavitamin) 1 tab PO DAILY [facility] Last Admin: 09/08/18 10:22 Dose: 1 tab Mycophenolate Sodium (Myfortic Dr) 720 mg PO BID [facility] Last Admin: 09/08/18 17:38 Dose: 720 mg Pantoprazole Sodium (Protonix Ec Tab) 40 mg PO DAILY [facility] Last Admin: 09/08/18 10:22 Dose: 40 mg Prednisone (Prednisone Tab) 5 mg PO DAILY [facility] Last Admin: 09/08/18 10:24 Dose: 5 mg Rosuvastatin Calcium (Crestor) 10 mg PO HS [facility] Last Admin: 09/07/18 21:23 Dose: 10 mg Saccharomyces Boulardii (Florastor) 250 mg PO BID [facility] Last Admin: 09/08/18 17:36 Dose: 250 mg Sodium Bicarbonate (Sodium Bicarbonate Tab) 650 mg PO BID [facility] Last Admin: 09/08/18 17:36 Dose: 650 mg Tamsulosin HCl (Flomax) 0.4 mg PO BID [facility] Last Admin: 09/08/18 17:36 Dose: 0.4 mg - Labs Labs: 09/08/18 11:11 09/08/18 11:11 PT 15.4 SECONDS (9.7-12.2) H 09/06/18 06:15 INR 1.4 09/06/18 06:15 APTT 29 SECONDS (21-34) 09/06/18 06:15 - Constitutional Appears: Non-toxic, Chronically Ill - Head Exam Head Exam: NORMOCEPHALIC - Eye Exam Eye Exam: absent: Scleral icterus - ENT Exam ENT Exam: Mucous Membranes Dry - Neck Exam Neck Exam: absent: Lymphadenopathy - Respiratory Exam Respiratory Exam: Decreased Breath Sounds - Cardiovascular Exam Cardiovascular Exam: REGULAR RHYTHM - GI/Abdominal Exam GI & Abdominal Exam: Distended, Soft - Rectal Exam Rectal Exam: Deferred - Exam Exam: NORMAL INSPECTION Assessment and Plan (1) Hematuria Status: Acute (2) UTI (urinary tract infection), bacterial Status: Acute (3) Bacteremia Status: Acute (4) Bifascicular block Status: Acute (5) CKD (chronic kidney disease) Status: Acute - Assessment and Plan (Free Text) Assessment: cont rx for 21 days and repeat u/a cultures before stopping antibiotics eval and transplant eval as out pt - may need cysto
--- NOTE | 2018-09-08 18:42 | PCM.URO ---
Urology Progress Note - General General: No Complaints (feeling better), Tolerating Diet - Subjective Abdominal Pain: No Flank Pain: No Nausea: No Vomiting: No Voiding Well: Yes Dysuria: No Hematuria: No Dsypnea: No Chest Pain: No Fever & Chills: No - Objective Lab Studies: Reviewed Lab Results Last 24 Hours: Laboratory Results - last 24 hr 09/07/18 09/07/18 09/07/18 19:16 19:16 21:34 WBC RBC Hgb Hct MCV MCH MCHC RDW Plt Count MPV Neut % (Auto) Lymph % (Auto) [place] % (Auto) Eos % (Auto) Baso % (Auto) Neut # (Auto) Lymph # (Auto) [place] # (Auto) Eos # (Auto) Baso # (Auto) Sodium Potassium Chloride Carbon Dioxide Anion Gap BUN Creatinine Est GFR ( Amer) Est GFR (Non-Af Amer) POC Glucose (mg/dL) 359 H Random Glucose Calcium Phosphorus Magnesium Total Bilirubin AST ALT Alkaline Phosphatase NT-Pro-B Natriuret Pep Total Protein Albumin Globulin Albumin/Globulin Ratio Urine Osmolality 239 L Ur Random Sodium 7 09/08/18 09/08/18 09/08/18 02:26 06:57 07:40 WBC RBC Hgb Hct MCV MCH MCHC RDW Plt Count MPV Neut % (Auto) Lymph % (Auto) [place] % (Auto) Eos % (Auto) Baso % (Auto) Neut # (Auto) Lymph # (Auto) [place] # (Auto) Eos # (Auto) Baso # (Auto) Sodium 134 Potassium 3.7 Chloride 104 Carbon Dioxide 21 L Anion Gap 13 BUN 54 H Creatinine 3.5 H Est GFR ( Amer) 21 Est GFR (Non-Af Amer) 17 POC Glucose (mg/dL) 290 H 219 H Random Glucose 237 H D Calcium 9.1 Phosphorus Magnesium Total Bilirubin AST ALT Alkaline Phosphatase NT-Pro-B Natriuret Pep 44407 H Total Protein Albumin Globulin Albumin/Globulin Ratio Urine Osmolality Ur Random Sodium 09/08/18 09/08/18 09/08/18 11:11 11:11 11:23 WBC 4.9 RBC 3.34 L Hgb 9.3 L Hct 28.8 L MCV 86.2 MCH 27.8 MCHC 32.3 L RDW 18.5 H Plt Count 132 MPV 9.6 Neut % (Auto) 76.4 H Lymph % (Auto) 10.1 L [place] % (Auto) 10.6 H Eos % (Auto) 2.3 Baso % (Auto) 0.6 Neut # (Auto) 3.7 Lymph # (Auto) 0.5 L [place] # (Auto) 0.5 Eos # (Auto) 0.1 Baso # (Auto) 0.0 Sodium 133 Potassium 3.5 L Chloride 103 Carbon Dioxide 21 L Anion Gap 13 BUN 52 H Creatinine 3.2 H Est GFR ( Amer) 23 Est GFR (Non-Af Amer) 19 POC Glucose (mg/dL) 278 H Random Glucose 259 H Calcium 8.9 Phosphorus 2.8 Magnesium 2.2 Total Bilirubin 0.7 AST 16 L ALT 19 L Alkaline Phosphatase 93 NT-Pro-B Natriuret Pep Total Protein 5.6 L Albumin 3.8 Globulin 1.8 L Albumin/Globulin Ratio 2.1 Urine Osmolality Ur Random Sodium 09/08/18 16:44 WBC RBC Hgb Hct MCV MCH MCHC RDW Plt Count MPV Neut % (Auto) Lymph % (Auto) [place] % (Auto) Eos % (Auto) Baso % (Auto) Neut # (Auto) Lymph # (Auto) [place] # (Auto) Eos # (Auto) Baso # (Auto) Sodium Potassium Chloride Carbon Dioxide Anion Gap BUN Creatinine Est GFR ( Amer) Est GFR (Non-Af Amer) POC Glucose (mg/dL) 323 H Random Glucose Calcium Phosphorus Magnesium Total Bilirubin AST ALT Alkaline Phosphatase NT-Pro-B Natriuret Pep Total Protein Albumin Globulin Albumin/Globulin Ratio Urine Osmolality Ur Random Sodium Intake & Output: Intake & Output 09/07/18 09/08/18 09/08/18 18:59 06:59 18:59 Intake Total 740 600 Output Total 1900 Balance -1160 600 Intake: Intake, IV Amount 200 Right Wrist 200 Oral 540 600 Output: Urine 1900 Urine, Voided 1900 Other: # Voids Urine, Voided 2 2 # Bowel Movements 0 1 Vital Signs: Vital Signs - 24 hr 09/08/18 09/08/18 09/08/18 00:00 08:00 10:19 Temperature 97.8 F 98.7 F Pulse Rate 67 77 Respiratory 20 20 Rate Blood Pressure 115/56 L 143/76 142/78 O2 Sat by Pulse 97 98 Oximetry 09/08/18 15:00 Temperature 97.3 F L Pulse Rate 83 Respiratory 20 Rate Blood Pressure 139/76 O2 Sat by Pulse 98 Oximetry - Physical Exam Abdominal Exam: Soft, Non-Tender, Non-Distended Bowel Sounds: Normal Back: No CVA Tenderness Genitalia: Without Inflammation - Plan Ambulation - Out of Bed: Yes Intake & Output: Yes Additional Information: IMP: improving clinically. UTI. reanl insuff. renal transplant. hx of bladder ca. likely cause of recurrent uti and recurrent retention is bph. P/Rec: antibiotics as per ID. Tamsulosin, finasteride. poss turp t/f. f/u cysto re bladder ca. discussed w pt and son - Date & Time of Note Date: 09/08/18 Time: 13:00
[2018-09-08] MEDS: (Lantus) Insulin Glargine, Recombinant SC SCH (21:31)
[2018-09-09] MEDS: Aztreonam 1 GM in Sodium Chloride 0.9% 100 ML IVPB SCH (05:36)
[2018-09-09] MEDS: Levothyroxine 75 MCG TAB PO SCH (05:36)
[2018-09-09 06:56] LABS: BASO % 0.8 % (0.0-2.0); EOS # 0.2 K/uL (0.0-0.7); EOS % 4.7 % (0.0-4.0); HEMOGLOBIN 9.5 g/dL (12.0-18.0); LYMPH # 0.6 K/uL (1.0-4.3); MEAN CELL VOLUME 85.2 fL (80.0-94.0); MEAN CORPUSCULAR HEMOGLOBIN 27.2 pg (27.0-31.0); MEAN CORPUSCULAR HGB CONC 31.9 g/dL (33.0-37.0); MEAN PLATELET VOLUME 9.6 fL (7.2-11.7); MONO # 0.5 K/uL (0.0-0.8); MONO % 10.2 % (0.0-10.0); NEUT # 3.6 K/uL (1.8-7.0); NEUT % 72.3 % (50.0-75.0); RBC 3.49 Mil/uL (4.40-5.90); RED CELL DISTRIBUTION WIDTH 18.2 % (11.5-14.5)
[2018-09-09 06:57] LABS: INR 1.2; PROTHROMBIN TIME 13.4 SECONDS (9.7-12.2)
[2018-09-09 07:23] LABS: ALB/GLOB RATIO 1.4 (1.0-2.1); ALBUMIN 3.2 g/dL (3.5-5.0); CALCIUM 8.9 mg/dl (8.6-10.4)
[2018-09-09] MEDS: (Novolog) Insulin Aspart, Recombinant 100 u/ml 10 ml vial SC SCH ×2 (08:09→12:11)
[2018-09-09 08:36] VITALS: PULSE 100; TEMP 98.5; O2SAT 99
--- NOTE | 2018-09-09 09:50 | CP.PCM.DIS ---
Provider - Provider Date of Admission: 09/04/18 12:27 Attending physician: Cesar Knutson MD Consults: 09/04/18 12:52 Urology Consult Routine Comment: Consulting Provider: Atiya Saldaña Consulting Physician: Atiya Saldaña Reason for Consult: UTI 09/04/18 12:56 Infectious Disease Consult Routine Comment: Consulting Provider: Estevan Bloom Consulting Physician: Estevan Bloom Reason for Consult: UTI 09/04/18 23:54 Nursing Referral for Wound Care Routine Comment: Physician Instructions: Reason For Exam: left anterior and left lower noel wound 09/05/18 13:35 Nephrology Consult Routine Comment: history of kidney transplant Consulting Provider: Alexis Barker Consulting Physician: Alexis Barker Reason for Consult: hx of kidney transplant Time Spent in preparation of Discharge (in minutes): 55 Hospital Course - Lab Results Lab Results: Micro Results 09/05/18 15:07 Blood Blood Culture - Preliminary NO GROWTH AFTER 3 DAYS 09/05/18 13:45 Blood Blood Culture - Preliminary NO GROWTH AFTER 3 DAYS 09/04/18 11:03 Blood Blood Culture - Preliminary NO GROWTH AFTER 4 DAYS 09/04/18 11:03 Urine Random Urine Culture - Final Escherichia Coli 09/04/18 11:03 Blood Blood Culture - Final Escherichia Coli 09/04/18 11:03 Blood Gram Stain - Final Most Recent Lab Values WBC 5.0 K/uL (4.8-10.8) 09/09/18 06:45 RBC 3.49 Mil/uL (4.40-5.90) L 09/09/18 06:45 Hgb 9.5 g/dL (12.0-18.0) L 09/09/18 06:45 Hct 29.7 % (35.0-51.0) L 09/09/18 06:45 MCV 85.2 fL (80.0-94.0) 09/09/18 06:45 MCH 27.2 pg (27.0-31.0) 09/09/18 06:45 MCHC 31.9 g/dL (33.0-37.0) L 09/09/18 06:45 RDW 18.2 % (11.5-14.5) H 09/09/18 06:45 Plt Count 130 K/uL (130-400) 09/09/18 06:45 MPV 9.6 fL (7.2-11.7) 09/09/18 06:45 Neut % (Auto) 72.3 % (50.0-75.0) 09/09/18 06:45 Lymph % (Auto) 12.0 % (20.0-40.0) L 09/09/18 06:45 [place] % (Auto) 10.2 % (0.0-10.0) H 09/09/18 06:45 Eos % (Auto) 4.7 % (0.0-4.0) H 09/09/18 06:45 Baso % (Auto) 0.8 % (0.0-2.0) 09/09/18 06:45 Neut # (Auto) 3.6 K/uL (1.8-7.0) 09/09/18 06:45 Lymph # (Auto) 0.6 K/uL (1.0-4.3) L 09/09/18 06:45 [place] # (Auto) 0.5 K/uL (0.0-0.8) 09/09/18 06:45 Eos # (Auto) 0.2 K/uL (0.0-0.7) 09/09/18 06:45 Baso # (Auto) 0.0 K/uL (0.0-0.2) 09/09/18 06:45 Neutrophils % (Manual) 82 % (50-75) H 09/07/18 07:46 Band Neutrophils % 6 % (0-2) H 09/07/18 07:46 Lymphocytes % (Manual) 3 % (20-40) L 09/07/18 07:46 Monocytes % (Manual) 9 % (0-10) 09/07/18 07:46 Differential Comment 09/06/18 06:15 Toxic Granulation Present 09/05/18 08:25 Platelet Estimate Normal (NORMAL) 09/07/18 07:46 Large Platelets Present 09/05/18 08:25 Giant Platelets Present 09/05/18 08:25 Polychromasia Slight 09/05/18 08:25 Hypochromasia (manual) Slight 09/07/18 07:46 Poikilocytosis (manual Slight 09/07/18 07:46 Anisocytosis (manual) Slight 09/07/18 07:46 Ovalocytes Moderate 09/07/18 07:46 [place] Cells Slight 09/07/18 07:46 PT 13.4 SECONDS (9.7-12.2) H 09/09/18 06:45 INR 1.2 09/09/18 06:45 APTT 29 SECONDS (21-34) 09/06/18 06:15 Sodium 134 mmol/L (132-148) 09/09/18 06:45 Potassium 3.3 mmol/L (3.6-5.2) L 09/09/18 06:45 Chloride 101 mmol/L (98-107) 09/09/18 06:45 Carbon Dioxide 23 mmol/L (22-30) 09/09/18 06:45 Anion Gap 14 (10-20) 09/09/18 06:45 BUN 49 mg/dL (9-20) H 09/09/18 06:45 Creatinine 2.8 mg/dL (0.8-1.5) H 09/09/18 06:45 Est GFR ( Amer) 27 09/09/18 06:45 Est GFR (Non-Af Amer) 23 09/09/18 06:45 POC Glucose (mg/dL) 342 mg/dL (65-110) H 09/08/18 21:20 Random Glucose 190 mg/dL (75-110) H D 09/09/18 06:45 Lactic Acid 1.7 mmol/L (0.7-2.1) 09/05/18 15:17 Calcium 8.9 mg/dl (8.6-10.4) 09/09/18 06:45 Phosphorus 3.2 mg/dL (2.5-4.5) 09/09/18 06:45 Magnesium 1.9 mg/dL (1.6-2.3) 09/09/18 06:45 Total Bilirubin 0.8 mg/dL (0.2-1.3) 09/09/18 06:45 AST 21 U/L (17-59) 09/09/18 06:45 ALT 17 U/L (21-72) L 09/09/18 06:45 Alkaline Phosphatase 100 U/L (38-126) 09/09/18 06:45 NT-Pro-B Natriuret Pep 51282 pg/mL (0-900) H 09/08/18 06:57 Total Protein 5.6 g/dL (6.3-8.3) L 09/09/18 06:45 Albumin 3.2 g/dL (3.5-5.0) L 09/09/18 06:45 Globulin 2.4 gm/dL (2.2-3.9) 09/09/18 06:45 Albumin/Globulin Ratio 1.4 (1.0-2.1) 09/09/18 06:45 Prostate Specific Ag 0.289 ng/mL (0.00-4.0) 09/06/18 06:15 Free T4 1.62 ng/dL (0.78-2.19) 09/07/18 07:46 TSH 3rd Generation 0.42 mIU/L (0.46-4.68) L 09/07/18 07:46 Urine Color Milli (YELLOW) 09/04/18 11:03 Urine Clarity Hazy (Clear) 09/04/18 11:03 Urine pH 5.0 (5.0-8.0) 09/04/18 11:03 Ur Specific [place] 1.013 (1.003-1.030) 09/04/18 11:03 Urine Protein 2+ mg/dL (NEGATIVE) H 09/04/18 11:03 Urine Glucose (UA) Normal mg/dL (Normal) 09/04/18 11:03 Urine Ketones Negative mg/dL (NEGATIVE) 09/04/18 11:03 Urine Blood 3+ (NEGATIVE) H 09/04/18 11:03 Urine Nitrate Negative (NEGATIVE) 09/04/18 11:03 Urine Bilirubin Negative (NEGATIVE) 09/04/18 11:03 Urine Urobilinogen Normal mg/dL (0.2-1.0) 09/04/18 11:03 Ur Leukocyte Esterase 2+ Alan/uL (Negative) H 09/04/18 11:03 Urine WBC (Auto) 458 /hpf (0-5) H 09/04/18 11:03 Urine RBC (Auto) 2475 /hpf (0-3) H 09/04/18 11:03 Urine Bacteria Mod (<OCC) H 09/04/18 11:03 Urine Osmolality 239 mosm/kg (300-1000) L 09/07/18 19:16 Ur Random Sodium 7 mmol/L 09/07/18 19:16 - Hospital Course Hospital Course: Upon Admission: Pt is a 72 M with PMHx of DMII, HTN, CHF, bladder CA, BPH, a fib, ESRD s/p DDRT 2013 admitted with UTI and sepsis. Patient recently treated for urosepsis with pyelonephritis at [facility]. Patient lives at [place] and has an indwelling llanes. Today patient says he is feeling much better. Patient denies any headache, chest pain, abdominal pain, nausea, vomiting, constipation, or di arrhea. All: Penicillins PMHx: DMII, HTN, CHF, bladder CA, BPH, obesity, ESRD s/p DDRT 2013 Surghx: Renal transplant, right metatarsal amputation, left AVF Throughout Hospital Course: Pyelonephritis with Bacteremia -- ID consulted, Dr. Bloom, help appreciated -- Urology consulted, Dr. Saldaña, help appreciated Repeat blood cultures negative x 48 hours Meds: Aztreonam 1 gm ivbp q8h Hx Renal Transplant -- Nephro consulted, Dr. Cornejo, help appreciated -as per nephro: pt on monthly belatacept infusion at [facility], last dose few days ago. Restart Myfortic 720mg PO BID on 09/08, Prednisone 5mg PO daily and discontinue stress dose of steroids. ESRD s/p renal transplant Feosol 325mg po daily Multivitamins Sodium Bicarb 650mg po BID Vit D 50,000 u q7d lasix 40mg po daily Hypothyroidism Synthroid 75mcg po daily TSH 0.42 Free T4 1.62 DMII Lantus 30 u sc HS ISS hypoglycemia protocol Gabapentin 100mg po daily ASA 81mg po daily accuchecks ACHS BPH Flomax .4mg po BID HLD Crestor 10mg po HS ASA 81mg po daily Please review EMR full record. Discharge Exam - Head Exam Head Exam: ATRAUMATIC, NORMAL INSPECTION, NORMOCEPHALIC - Eye Exam Eye Exam: EOMI, Normal appearance, PERRL Pupil Exam: NORMAL ACCOMODATION - ENT Exam ENT Exam: Mucous Membranes Moist - Respiratory Exam Respiratory Exam: Clear to PA & Lateral, NORMAL BREATHING PATTERN. absent: Decreased Breath Sounds, Rales, Rhonchi, Wheezes - Cardiovascular Exam Cardiovascular Exam: +S1, +S2 - GI/Abdominal Exam GI & Abdominal Exam: Normal Bowel Sounds, Soft. absent: Distended, Tenderness - Extremities Exam Extremities exam: normal inspection, pedal pulses present - Neurological Exam Neurological exam: Alert, Oriented x3 - Psychiatric Exam Psychiatric exam: Normal Affect - Skin Skin Exam: Dry, Intact, Normal Color, Warm - Additional Findings Additional findings: Left AVF, right pacemaker Discharge Plan - Discharge Medications Prescriptions: Ergocalciferol [Drisdol 50,000 Intl Units Cap] 1 cap PO Q7D #4 cap Ferrous Sulfate [Feosol] 325 mg PO DAILY #30 tab Furosemide [Lasix] 40 mg PO DAILY #30 tab Gabapentin [Neurontin] 100 mg PO DAILY #30 cap Levothyroxine [Synthroid] 75 mcg PO DAILY #30 tab Multivitamin [Multivitamins] 1 cap PO DAILY #30 capsule Pantoprazole [Protonix EC Tab] 40 mg PO DAILY #30 ect predniSONE [predniSONE Tab] 5 mg PO DAILY #30 tab Rosuvastatin Calcium [Crestor] 10 mg PO HS #30 tab Saccharomyces Boulardi [Florastor] 250 mg PO BID #60 cap Sodium Bicarbonate Tab 650 mg PO BID #60 tab Tamsulosin [Flomax] 0.4 mg PO BID #60 cap - Follow Up Plan Condition: STABLE Disposition: HOME/ ROUTINE Instructions: Urinary Tract Infection in Women (DC), Urinary Tract Infection in Men (DC), Dysuria (GEN) Additional Instructions: Continue with your home medications as you were instructed to take previously. Please continue to follow up with your primary care doctor within 1 week. Please continue to follow up with you Case Monitor, Dr. Barker. You will continue with the IV antibiotics for 2 weeks. Please follow up with Dr. Bloom who will follow your blood work once a week during these 2 weeks of IV antibiotics. Please take care and be well. ----- Contine con allison medicamentos caseros medardo se le indic madison previamente. Por favor contine con betancur mdico de atencin primaria dentro de 1 semana. Por favor contine con betancur nefrlogo, Dr. Barker. Continuar con los antibiticos intravenosos yenni 2 semanas. Por favor nathan un seguimiento con el Dr. Bloom, quien le realizar un anlisis de rossy romeo vez a la semana yenni estas 2 semanas de antibiticos por va intravenosa. Por favor cuidate y estar annelise. Referrals: Bryson Barker MD [Staff Provider] - Alexis Barker MD [Staff Provider] - Estevan Bloom MD [Staff Provider] -
[2018-09-09] MEDS ORDERED: Potassium Chloride 20 mEq ER Tab PO ONE ×2 (10:00→11:45)
[2018-09-09] MEDS ORDERED: Lidocaine 2% MPF (5 ml) Inj ONE (10:43)
[2018-09-09] MEDS ORDERED: Lidocaine 1% 20 MG/2 ML PF AMP ONE (10:44)
--- NOTE | 2018-09-09 11:12 | PCM.SURG1 ---
Surgeon's Initial Post Op Note - Surgeon's Notes Surgeon: Iain Jaquez MD Clipper Automatic: NONE Type of Anesthesia: Local Pre-Operative Diagnosis: Infection Operative Findings: US showed a patent right basilic vein. Post-Operative Diagnosis: Infection Operation Performed: SIngle lumen picc placement right arm, 41 cm. Tip is in the SVC. Specimen/Specimens Removed: NONE Estimated Blood Loss: EBL {In ML}: 2 Blood Products Given: N/A Drains Used: No Drains Post-Op Condition: Fair Date of Surgery/Procedure: 09/09/18 Time of Surgery/Procedure: 11:10
[2018-09-09] MEDS: Multiple Vitamins Tab PO SCH (11:28)
[2018-09-09] MEDS: Saccharomyces Boulardi 250 mg Cap PO SCH (11:28)
[2018-09-09] MEDS: Mycophenolic Acid DR 360 mg Tab PO SCH (11:29)
[2018-09-09] MEDS: Pantoprazole 40 mg EC Tab PO SCH (11:29)
[2018-09-09 11:32] VITALS: BP 178/81
--- NOTE | 2018-09-09 13:22 | CP.PCM.PN ---
Subjective - Date & Time of Evaluation Date of Evaluation: 09/09/18 Time of Evaluation: 13:21 - Subjective Subjective: Nephrology Consultation Note: Assessment: stable Acute Kidney Injury (N17.9) likely due to ATN with sepsis: improving Diabetic chronic Kidney Disease (E11.22) Hypertensive Chronic Kidney Disease (I12.9) CKD 3 with cr 2.1 ESRD s/p DDRT 2013 acute pyelonephritis with sepsis with shock CHF, Ca bladder, BPH, obesity Plan No acute need for renal replacement therapy at this time. Pt continue to looks better and improving clinically Hypertension control with meds as ordered. Maintain hemodynamics stable. Avoid hypotension. Patient not on ACEI/ARB due to recent JUNI and sepsis Monitor Input/Output, daily weights and renal function with basic metabolic panel resume lasix 40 mg/d continue with iron, MVI. continue with flomax added sodium bicarb supplement lytes as needed Re: kidney transplant: pt on monthly belatacept infusion at [facility], last dose few days ago. on home dose myfortic 720mg bid resume prednisone 5 mg/d Dose meds/antibiotics for reduced GFR. Avoid fleets enema/magnesium based laxatives. Avoid nephrotoxins/NSAIDs/ iodinated contrast (unless needed emergently) Glycemic control Further work up/management as per primary team pt for d/c home with IV abx. stable from renal perspective, suggested 1 week f/up Thanks for allowing me to participate in care of your patient. Will follow patient with you. Please call if any Qs. had d/w team Dr Chema Cornejo Office: [phone] Chief Complaint; burning urination Reason for consult: Acute Kidney Injury, kidney Tx HPI: Pt is a 72 M with hx of diabetes Mellitus ( years), hypertension (years) CHF, Ca bladder, BPH, obesity, ESRD s/p DDRT 2013 admitted with UTI and sepsis. renal consult for Juni and Tx management Denies OTC/herbal meds or NSAIDs No recent iodinated contrast exposure. Noted obvious episodes of low BP (SBP 60-80s). ROS: feels better Cardiovascular: No chest pain. Pulmonary: No shortness of breath Gastrointestinal: denies abdominal pain No nausea. No vomiting. Genitourinary: no pain while urinating. Denies blood in urine. All other negative except as mentioned in HPI Physical Examination: General Appearance: Comfortable, in no acute respiratory distress, co-operative . Vitals reviewed and noted as below Head; Atraumatic, normocephalic ENT: no ulcers no thrush. Tongue is midline. Oropharynx: no rash or ulcers. EYES: Pupils are equal, round and reactive to light accommodation. Eye muscles and extraocular movement intact. Sclera is anicteric. Neck; supple no lymphadenopathy, no thyromegaly or bruit Lungs: Normal respiratory rate/effort. Breath sounds bilateral clearer Heart: Normal rate. s1s2 normal. No rub or gallop. Extremities: 1-2+ edema. No varicose veins Neurological: Patient is alert, awake and oriented to person, place and time. No focal deficit. Strength bilateral appropriate and equal Skin: Warm and dry. Normal turgor. No rash. Palpitation: Normal elasticity for age Abdomen: Abdomen is soft. Bowel sounds +. There is no abdominal tenderness, no guarding/rigidity no organomegaly Psych: limited insight and normal affect/mood MSK: no joint tenderness or swelling. Digits and nails normal, no deformity : [place] kidney or bladder not palpable. RLQ allograft with mild tenderness Labs/imaging reviewed. Past medical history, past surgical history, family history, social history, allergy reviewed and noted as below Family hx: no hx of CKD. Rest non-contributory Objective - Vital Signs/Intake and Output Vital Signs (last 24 hours): Temp Pulse Resp BP Pulse Ox 98.5 F 100 H 20 178/81 H 99 09/09/18 08:00 09/09/18 08:00 09/09/18 08:00 09/09/18 11:27 09/09/18 08:00 - Medications Medications: Current Medications Acetaminophen (Tylenol 325mg Tab) 650 mg PO Q4 PRN PRN Reason: Pain, Mild (1-3) Last Admin: 09/06/18 00:04 Dose: 650 mg Aspirin (Ecotrin) 81 mg PO DAILY [facility] Last Admin: 09/09/18 11:29 Dose: 81 mg Dextrose (Dextrose 50% Inj) 0 ml IV STAT PRN; Protocol PRN Reason: Hypoglycemia Protocol Dextrose (Glutose 15) 0 gm PO ONCE PRN; Protocol PRN Reason: Hypoglycemia Protocol Ergocalciferol (Drisdol 50,000 Intl Units Cap) 1 cap PO Q7D [facility] Last Admin: 09/05/18 12:24 Dose: 1 cap Ferrous Sulfate (Feosol) 325 mg PO DAILY [facility] Last Admin: 09/09/18 11:29 Dose: 325 mg Furosemide (Lasix) 40 mg PO DAILY [facility] Last Admin: 09/09/18 11:27 Dose: 40 mg Gabapentin (Neurontin) 100 mg PO DAILY [facility] Last Admin: 09/09/18 11:28 Dose: 100 mg Glucagon (Glucagen Diagnostic Kit) 0 mg IM STAT PRN; Protocol PRN Reason: Hypoglycemia Protocol Imipenem/Cilastatin Sodium 500 (mg/ Sodium Chloride) 100 mls @ 100 mls/hr IVPB ONCE ONE; Protocol Stop: 09/09/18 13:59 Last Admin: 09/09/18 12:39 Dose: 100 mls/hr Insulin Aspart (Novolog) 0 unit [facility]; Protocol Last Admin: 09/09/18 12:11 Dose: 8 units Insulin Glargine (Lantus) 30 unit SC [facility] Last Admin: 09/08/18 21:31 Dose: 30 units Levothyroxine Sodium (Synthroid) 75 mcg PO DAILY@0630 [facility] Last Admin: 09/09/18 05:36 Dose: 75 mcg Multivitamins (Hexavitamin) 1 tab PO DAILY [facility] Last Admin: 09/09/18 11:28 Dose: 1 tab Mycophenolate Sodium (Myfortic Dr) 720 mg PO BID [facility] Last Admin: 09/09/18 11:29 Dose: 720 mg Pantoprazole Sodium (Protonix Ec Tab) 40 mg PO DAILY [facility] Last Admin: 09/09/18 11:29 Dose: 40 mg Prednisone (Prednisone Tab) 5 mg PO DAILY [facility] Last Admin: 09/09/18 11:29 Dose: 5 mg Rosuvastatin Calcium (Crestor) 10 mg PO HS [facility] Last Admin: 09/08/18 21:32 Dose: 10 mg Saccharomyces Boulardii (Florastor) 250 mg PO BID [facility] Last Admin: 09/09/18 11:28 Dose: 250 mg Sodium Bicarbonate (Sodium Bicarbonate Tab) 650 mg PO BID [facility] Last Admin: 09/09/18 11:28 Dose: 650 mg Tamsulosin HCl (Flomax) 0.4 mg PO BID [facility] Last Admin: 09/09/18 11:28 Dose: 0.4 mg - Labs Labs: 09/09/18 06:45 09/09/18 06:45 PT 13.4 SECONDS (9.7-12.2) H 09/09/18 06:45 INR 1.2 09/09/18 06:45 APTT 29 SECONDS (21-34) 09/06/18 06:15
--- NOTE | 2018-09-14 13:52 | PQF ---
PROVIDER RESPONSE TEXT: Unrelated REVIEWER QUERY TEXT: Cause and Effect Relationship Please clarify in documentation the relationship, if any, between _PYELONEPHRITIS and___ TRANSPLATED KIDNEY INFECTION Such as: -- Conditions are due to or associated -- Unrelated to each other -- Other, please specify The patient's Clinical Indicators include: PYELONEPHRITIS , SEPSIS WITH KIDNEY TRANSPLNT INFECTION Query created by: Tania Arredondo on 09/10/2018 9:58 AM Electronically signed by: Cesar Knutson MD 09/14/2018 1:50 PM
== END 2018-09-09 14:56 | disposition home or self-care (01) | DRG 871 ==
LOC: C.ER 09:51 → C.9E 12:27 → OBSVTOIN 12:27 → C.3T 13:54
PROVIDERS: ADMIT Internal Medicine Pulmonary Disease; ATTEND Internal Medicine Pulmonary Disease
PROC: 02HV33Z Insertion of Infusion Device into Superior Vena Cava, Percutaneous Approach (ICD-10-PCS; principal; 2018-09-09)
PROC: B548ZZA Ultrasonography of Superior Vena Cava, Guidance (ICD-10-PCS; 2018-09-09)
DX: A41.9 Sepsis, unspecified organism (principal); N17.0 Acute kidney failure with tubular necrosis; R65.21 Severe sepsis with septic shock; T86.13 Kidney transplant infection; N10 Acute pyelonephritis; I45.2 Bifascicular block; I13.0 Hypertensive heart and chronic kidney disease with heart failure and stage 1 through stage 4 chronic kidney disease, or unspecified chronic kidney disease; Z94.0 Kidney transplant status; C67.9 Malignant neoplasm of bladder, unspecified; E11.22 Type 2 diabetes mellitus with diabetic chronic kidney disease; I50.9 Heart failure, unspecified; N40.0 Benign prostatic hyperplasia without lower urinary tract symptoms; I48.91 Unspecified atrial fibrillation; N16 Renal tubulo-interstitial disorders in diseases classified elsewhere; N18.3 Chronic kidney disease, stage 3 (moderate); R31.9 Hematuria, unspecified; E03.9 Hypothyroidism, unspecified; E78.5 Hyperlipidemia, unspecified; E78.00 Pure hypercholesterolemia, unspecified; G47.30 Sleep apnea, unspecified; E66.9 Obesity, unspecified; Y83.0 Surgical operation with transplant of whole organ as the cause of abnormal reaction of the patient, or of later complication, without mention of misadventure at the time of the procedure; Z95.0 Presence of cardiac pacemaker; Z79.4 Long term (current) use of insulin; Z87.891 Personal history of nicotine dependence; Z87.01 Personal history of pneumonia (recurrent); Z68.30 Body mass index [BMI] 30.0-30.9, adult; Z88.0 Allergy status to penicillin